=== PATIENT | female | born 1950 | race Caucasian/White ===

== ENCOUNTER 2018-01-26 22:09 | Inpatient (IN) | payer BC, OTHER ==
[2018-01-27] MEDS ORDERED: Tetan/Diph/Pertus SYR(Tdap)* 0.5 ML SYR(BOOSTRIX) use SYR IM ONE (01:19)
[2018-01-27] MEDS ORDERED: NS 0.9% 1000 ML* 1,000 ML IV ONE (01:19)
[2018-01-27 01:34] LABS: ABS Basophils 0 10^3/ul (0-0.2); ABS Eosinophils 0 10^3/ul (0-0.6); ABS Lymphocytes 0.6 10^3/ul (1.0-4.8); ABS Monocytes 0.6 10^3/ul (0-0.8); ABS Neutrophils 8.8 10^3/ul (1.5-7.7); ABS Nucleated RBC 0 10^3/ul; Eosinophil % 0.1 % (0-6); Hematocrit 37 % (35-47); Hemoglobin 12.8 g/dl (12.0-16.0); Lymphocyte % 5.6 % (25-47); Mean Corpuscular HGB Conc 35 g/dl (31-36); Mean Corpuscular Hemoglobin 37 pg (27-31); Mean Corpuscular Volume 104 fL (80-97); Mean Platelet Volume 7 um3 (7.4-10.4); Nucleated Red Blood Cells % 0.1; Platelet Count 214 10^3/ul (150-450); Red Cell Distribution Width 13 % (10.5-15)
[2018-01-27 01:57] LABS: Urine Appearance Cloudy; Urine Blood Negative (Negative); Urine Color Yellow; Urine Ketones 1+ (Negative); Urine Protein 2+(100 mg/dL) (Negative); Urine Specific Gravity 1.017 (1.010-1.030); Urine Urobilinogen Negative (Negative)
--- NOTE | 2018-01-27 06:35 | ED ---
Armond Moscoso Thomas, scribed for Ann Marie Espinosa MD on 01/26/18 at 2329 . Complex/Multi-Sys Presentation - HPI Summary HPI Summary: The patient is a 67 year old female with a history of ovarian cancer on comfort care. She lives by herself. She does have an advance directive and a MOLST. She does not want any care, and she did confirm this to me in the examination room. When I ask her what care she wants, she responds I just want to . The patient admits to taking 30 pills of Xanax 0.5 mg earlier today. Her family could not get a hold of her on the phone today, so they called the police to check on the patient. The police found the patient on the floor of her home after a fall, so they called an ambulance. The patient remembers falling. She complains of abdominal pain. She has a laceration over her left occipital area and multiple superficial infected lacerations over her arms and legs. She denies vomiting. - History Of Current Complaint Chief Complaint: EDMentalHealth Time Seen by Provider: 01/26/18 22:11 Hx Obtained From: Patient Onset/Duration: Still Present Timing: Constant Severity Currently: Moderate Location: Pain At: - abdomen Alleviating Factor(s): None Associated Signs And Symptoms: Positive: Other - Xanax ingestion, abdominal pain ; NEGATIVE: vomiting - Allergies/Home Medications Allergies/Adverse Reactions: Allergies Allergy/AdvReac Type Severity Reaction Status Date / Time MS Bee Venom [Bee Venom] Allergy Anaphylatic Verified 10/21/17 09:20 Shock MS Codeine [Codeine] Allergy Headache Verified 10/21/17 09:20 MS Cephalexin [From Keflex] AdvReac Nausea And Verified 10/21/17 09:20 Vomiting MS Ondansetron [Ondansetron] AdvReac Headache Verified 10/21/17 09:20 MS Prochlorperazine AdvReac See Comment Verified 10/21/17 09:20 [Prochlorperazine] Home Medications: Home Medications ALPRAZolam TAB* [Xanax TAB*] 0.5 - 1 mg PO QID 01/26/18 [History Confirmed 01/26] ALPRAZolam TAB* [Xanax TAB*] 0.5 mg PO BEDTIME PRN 01/26/18 [History Confirmed 01/26/18] Levothyroxine TAB* [Synthroid TAB*] 75 mcg PO DAILY 01/26/18 [History Confirmed 01/26/18] Lisinopril TAB* [Prinivil TAB*] 10 mg PO DAILY 01/26/18 [History Confirmed 01/26] amLODIPine TAB* [Norvasc 5 mg TAB*] 10 mg PO DAILY 01/26/18 [History Confirmed 01/26/18] PMH/Surg Hx/FS Hx/Imm Hx Endocrine/Hematology History: Reports: Hx Thyroid Disease - ON DAILY MEDS Denies: Hx Diabetes Cardiovascular History: Reports: Hx Hypertension - WELL CONTROLLED GI History: Reports: Hx Gastroesophageal Reflux Disease History: Denies: Hx Renal Disease Musculoskeletal History: Reports: Hx Arthritis - KNEES, HANDS Sensory History: Reports: Hx Contacts or Glasses - 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 - Cancer History Cancer Type, Location and Year: Melanoma 2014, ovarian Hx Chemotherapy: Yes - Surgical History Surgery Procedure, Year, and Place: LEFT SHOULDER [facility]. LEFT WRIST GANGLION [facility]. 2007 LEFT KNEE [place]. 2013 FACIAL MELANOMA EXC [place]. LEFT INDEX FINGER NERVE REPAIR 2013 [facility] Hx Anesthesia Reactions: No Infectious Disease History: No Infectious Disease History: Denies: History Other Infectious Disease, Traveled Outside the [place] in Last 30 Days - Family History Known Family History: Negative: Blood Disorder - Social History Alcohol Use: None Alcohol Amount: 2-3 DRINKS/WEEK Substance Use Type: Reports: None Smoking Status (MU): Heavy Every Day Tobacco Smoker Type: Cigarettes Amount Used/How Often: 10-15/DAY Length of Time of Smoking/Using Tobacco: 40 YRS Have You Smoked in the Last Year: Yes Review of Systems Positive: Abdominal Pain. Negative: Vomiting Positive: Other - Laceration Neurological: Other - Fall Positive: Other - Self ingestion Xanax All Other Systems Reviewed And Are Negative: Yes Physical Exam - Summary Physical Exam Summary: VITAL SIGNS: Reviewed. GENERAL: Patient is a well-developed and nourished female who is lying comfortable in the stretcher. Patient is not in any acute respiratory distress. HEAD AND FACE: No signs of trauma. She has a laceration over her left occipital area. No ecchymosis, hematomas or skull depressions. No sinus tenderness. EYES: PERRLA, EOMI x 2, No injected conjunctiva, no nystagmus. EARS: Hearing grossly intact. Ear canals and tympanic membranes are within normal limits. MOUTH: Oropharynx within normal limits. NECK: Supple, trachea is midline, no adenopathy, no JVD, no carotid bruit, no c- spine tenderness, neck with full ROM. CHEST: Symmetric, no tenderness at palpation LUNGS: Clear to auscultation bilaterally. No wheezing or crackles. CVS: Regular rate and rhythm, S1 and S2 present, no murmurs or gallops appreciated. ABDOMEN: Soft, non-tender. No signs of distention. No rebound no guarding, and no masses palpated. Bowel sounds are normal. EXTREMITIES: FROM in all major joints, no edema, no cyanosis or clubbing. NEURO: Alert and oriented x 3. No acute neurological deficits. Speech is normal and follows commands. SKIN: She has a laceration over her left occipital area and multiple superficial infected lacerations over her arms and legs Triage Information Reviewed: Yes Vital Signs On Initial Exam: Initial Vitals BP 140/102 01/26/18 22:21 Vital Signs Reviewed: Yes Procedures - Laceration/Wound Repair 1 Location: Other - left occipital area Description: Linear Anesthesia: 2.0%, [place], Epi Length, Depth and Shape: 1 cm lac with hematoma over left occipital area Closure: [place] #__ - 2 Diagnostics - Vital Signs Vital Signs Temp Pulse Resp BP Pulse Ox 01/26/18 23:00 83 19 94 01/26/18 22:38 97.6 F 92 15 142/78 97 01/26/18 22:30 83 18 142/78 96 01/26/18 22:23 89 99 01/26/18 22:21 140/102 - Laboratory Result Diagrams: 01/27/18 01:23 01/27/18 01:23 Lab Statement: Any lab studies that have been ordered have been reviewed, and results considered in the medical decision making process. - CT CT Brain CT Interpretation: No Acute Changes - Scalp swelling without skull fracture. Very questionable minimal left parietal subarachnoid hemorrhage, more likely representing old calcification, but consider follow up CT in the next 24 hours to ensure stability. Dr. Espinosa has reviewed this report. CT Interpretation Completed By: Radiologist - EKG 06:26 Cardiac Rate: NL EKG Rhythm: Sinus Rhythm - at 96 BPM EKG Interpretation: ST depression in anterior leads as well as the high lateral leads. Complex Multi-Symp Course/Dx Course Of Treatment: The patient is medically cleared for mental health evaluation at 02:37. Assessment/Plan: The patient is a 67 year old female with a history of ovarian cancer on comfort care. She lives by herself. She does have an advance directive and a MOLST. She does not want any care, and she did confirm this to me in the examination room. When I ask her what care she wants, she responds I just want to . The patient admits to taking 30 pills of Xanax 0.5 mg earlier today. Her family could not get a hold of her on the phone today, so they called the police to check on the patient. The police found the patient on the floor of her home after a fall, so they called an ambulance. She has a laceration over her left occipital area. A laceration repair was performed. In the ED course the patient was given IV fluids. CT Brain shows Scalp swelling without skull fracture. Very questionable minimal left parietal subarachnoid hemorrhage, more likely representing old calcification, but consider follow up CT in the next 24 hours to ensure stability. The patient is medically cleared for mental health evaluation at 02:37. The mental health evaluators recommend transfer of the patient. The patient will be transferred. - Diagnoses Provider Diagnoses: Suicidal ideation, Depression Discharge - Discharge Plan Condition: Stable Disposition: OTHER Discharge Disposition Comment: Patient will be transferred. Referrals: Fanta Gill MD [Primary Care Provider] - The documentation as recorded by the Armond camacho Thomas accurately reflects the service I personally performed and the decisions made by me, Ann Marie Espinosa MD.
--- NOTE | 2018-01-27 08:23 | RAD ---
INDICATION: Fall COMPARISON: None. TECHNIQUE: Contiguous axial sections of the brain were obtained from the skull base to the vertex without contrast. FINDINGS: The ventricles, cisterns and sulci are within normal limits. At the jordan-white matter junction of the right parietal lobe there is a hyperattenuating focus with a Hounsfield unit measuring 15 (image 22). Involving the posterior surface of the left postcentral gyrus (image 21) there is an ill-defined focus of hyperattenuation at the cortex. The jordan-white matter differentiation is otherwise adequately maintained. There is no large mass, mass effect or midline shift. Overlying the right frontal lobe is hyperattenuating thickening of the subgaleal tissue measuring 3 mm with a mild degree of overlying subcutaneous infiltration. Overlying the right parieto-occipital bone there is thickening of the subgaleal tissue with hyperattenuation measuring 6 mm with overlying subcutaneous infiltration. There is no underlying calvarial fracture. The visualized portion of the paranasal sinuses appear clear. The mastoid air cells are well aerated bilaterally. IMPRESSION: Superficial signs of trauma overlying the right frontal and right parietal occipital bones. There are 2 foci of hyperattenuation involving the bilateral parietal lobes that, in the setting of recent trauma, could be axonal hemorrhage and/or subarachnoid hemorrhage. There are no prior brain CTs to determine the chronicity of these findings.
--- NOTE | 2018-01-27 09:02 | PN ---
ED Flex Patient Progress Note Date of Service: 01/27/18 Subjective: This is a 67 year-old F who is pending transfer to another psychiatric facility secondary to SI. Pt offers no complaints at this time. She is eating breakfast. Objective: Vitals: Most recent vital signs documented below. General NAD, Alert and oriented x3. Heart: rrr at 70bpm Lungs: CTA or with rales, rhonchi, wheezing Laboratory: Current laboratory results documented below. Assessment: SI Plan: Pending psychiatric to transfer will follow up daily until accepted at facility condition:Stable disposition:transfer Vital Signs Temp Pulse Resp BP Pulse Ox 98 F 86 19 131/58 96 01/27/18 06:51 01/27/18 08:00 01/27/18 08:00 01/27/18 08:00 01/27/18 08:00 Lab Results - Entire Visit 01/27/18 01/27/18 01/27/18 01:45 01:45 01:23 WBC 10.0 RBC 3.50 L Hgb 12.8 Hct 37 MCV 104 H MCH 37 H MCHC 35 RDW 13 Plt Count 214 MPV 7 L Neut % (Auto) 88.0 H Lymph % (Auto) 5.6 L Williams % (Auto) 6.0 Eos % (Auto) 0.1 Baso % (Auto) 0.3 Absolute Neuts (auto) 8.8 H Absolute Lymphs (auto) 0.6 L Absolute Monos (auto) 0.6 Absolute Eos (auto) 0 Absolute Basos (auto) 0 Absolute Nucleated RBC 0 Nucleated RBC % 0.1 Sodium Potassium Chloride Carbon Dioxide Anion Gap BUN Creatinine Est GFR ( Amer) Est GFR (Non-Af Amer) BUN/Creatinine Ratio Glucose Calcium Total Bilirubin AST ALT Alkaline Phosphatase Total Creatine Kinase Total Protein Albumin Globulin Albumin/Globulin Ratio TSH Urine Color Yellow Urine Appearance Cloudy Urine pH 5.0 Ur Specific [place] 1.017 Urine Protein 2+(100 mg/dl) A Urine Ketones 1+ A Urine Blood Negative Urine Nitrate Negative Urine Bilirubin Negative Urine Urobilinogen Negative Ur Leukocyte Esterase Negative Urine WBC (Auto) 1+(6-10/hpf) A Urine RBC (Auto) Trace(0-2/hpf) Ur Squamous Epith Cells Present A Urine Bacteria Absent Hyaline Casts Present A Urine Glucose Negative Urine Ascorbic Acid * A Salicylates Urine Opiates Screen None detected Acetaminophen Ur Barbiturates Screen None detected Ur Phencyclidine Scrn None detected Ur Amphetamines Screen None detected U Benzodiazepines Scrn Presumptive positive A Urine Cocaine Screen None detected U Cannabinoids Screen None detected Serum Alcohol 01/27/18 01:23 WBC RBC Hgb Hct MCV MCH MCHC RDW Plt Count MPV Neut % (Auto) Lymph % (Auto) Williams % (Auto) Eos % (Auto) Baso % (Auto) Absolute Neuts (auto) Absolute Lymphs (auto) Absolute Monos (auto) Absolute Eos (auto) Absolute Basos (auto) Absolute Nucleated RBC Nucleated RBC % Sodium 136 Potassium 3.9 Chloride 103 Carbon Dioxide 24 Anion Gap 9 BUN 17 Creatinine 0.80 Est GFR ( Amer) 92.6 Est GFR (Non-Af Amer) 72.0 BUN/Creatinine Ratio 21.3 H Glucose 108 H Calcium 10.2 Total Bilirubin 0.40 AST 25 ALT 11 Alkaline Phosphatase 74 Total Creatine Kinase 120 Total Protein 8.8 Albumin 4.2 Globulin 4.6 H Albumin/Globulin Ratio 0.9 L TSH 0.56 Urine Color Urine Appearance Urine pH Ur Specific [place] Urine Protein Urine Ketones Urine Blood Urine Nitrate Urine Bilirubin Urine Urobilinogen Ur Leukocyte Esterase Urine WBC (Auto) Urine RBC (Auto) Ur Squamous Epith Cells Urine Bacteria Hyaline Casts Urine Glucose Urine Ascorbic Acid Salicylates < 2.50 Urine Opiates Screen Acetaminophen < 15 Ur Barbiturates Screen Ur Phencyclidine Scrn Ur Amphetamines Screen U Benzodiazepines Scrn Urine Cocaine Screen U Cannabinoids Screen Serum Alcohol < 10
[2018-01-27] MEDS ORDERED: Ibuprofen TAB* 600 MG PO ONE (14:25)
[2018-01-27] MEDS ORDERED: Ibuprofen TAB* 600 MG ONE (14:26)
[2018-01-27] MEDS ORDERED: Acetaminophen TAB* 325 MG PO ONE (16:42)
[2018-01-27] MEDS ORDERED: Al Hydrox/Mg Hydrox/Simet LIQ* 30 ML UDC PO PRN (17:06)
[2018-01-27] MEDS ORDERED: diPHENhydraMINE PO* 25 MG PO PRN (17:08)
[2018-01-27] MEDS ORDERED: LORazepam TAB(*) 1 MG PO PRN (17:17)
[2018-01-27] MEDS ORDERED: Nicotine Inhaler* 10 MG AMP INH PRN (18:28)
[2018-01-27] MEDS ORDERED: Mouth Piece, Nicotine* 1 EACH CARTRIDGE INH ONE (19:00)
[2018-01-28] MEDS: Acetaminophen TAB* 325 MG PO PRN ×2 (04:20→09:50)
[2018-01-28] MEDS: Docusate LIQ* 100 MG/10 ML UDC PO SCH ×4 (05:47→22:11)
[2018-01-28] MEDS: Nicotine Patch Removal NOTE PATCH OFF SCH ×2 (05:47→22:10)
[2018-01-28] MEDS: Senna TAB PO SCH ×4 (05:47→22:10)
[2018-01-28] MEDS: Ibuprofen TAB* 400 MG PO PRN ×2 (08:10)
[2018-01-28] MEDS: Levothyroxine TAB* 75 MCG TAB PO SCH (08:10)
[2018-01-28] MEDS: amLODIPine TAB* 5 MG PO SCH (08:10)
[2018-01-28] MEDS: Lisinopril TAB* 10 MG PO SCH (08:10)
[2018-01-28] MEDS ORDERED: OMEGA-3 FATTY ACIDS (NF) 1,000 MG CAP PO SCH (09:00)
[2018-01-28] MEDS: Nicotine PATCH 21 MG/24 HR* PATCH TRANSDERM SCH (09:02)
[2018-01-28] MEDS: Multivitamins/Minerals TAB PO SCH (09:02)
--- NOTE | 2018-01-28 11:08 | ADMNOTE ---
History - Objective HPI: Psychiatric Attending History and Physical NAME: Judie Brar : 1950 AGE: 69 PROVIDER: Jose Casanova D.O. DATE OF ADMISSION: 01/27/2018 JUSTIFICATION FOR ADMISSION: Patient in need of imminent involuntary admission to a psychiaric inpatient unit for 24 hour supervision as she is a danger to her self, having made a suicide attempt by overdose CHIEF COMPLAINT: "I want to crawl into a ball and " HISTORY OF THE PRESENT ILLNESS: 67 yo single woman retired with history of stage 4 ovarian cancer with bone metastasis diagnosed 2 years ago. Patient lives alone. patient received weekly chemotherapy for past two years and reports fairly good quality of life with only minimal pain which has been treated with only ibuprofen and tylenol. Patient reports that she stopped chemotherapy by choice and in collaboration with her oncologist in November 2017 due to diminished effectiveness as evidence by rising tumor markers, and toxic side effects of chemotherapy including decreased stamina, lethargy, excercise intolerance, general feelings of malaise. At that time patient began receiving services from hospice care with in home visits by nursing and social work. Patient denies history of mental illness or psychiatric hospitalization. She further reports onset of depression for past several months which has become progressively more severe in past two weeks. patient endorses anergia, lethargy, poor appetite, early insomnia, agitation, loss of interest, dysphoric mood for past few months. SHe has been isolating, not caring for her ADL's, and not cleaning her aprtment. She developed suicidal ideation about two weeks ago and has been ruminating daily about taking her own life. one week prior to admission she began to experience bone pain which was not relieved by tylenol or mortin. She did not share her depressive symptoms nor her pain with her sister or the hospice team. Patient has cats which she is very attatched to. on day prior to admission patient drowned her cats so they would not be a burden to anyone after she her and because she wanted to "take them with me to my grave". Patient subsequently took an entire bottle of xanax 0.5 mg tablets (30 pills) with the intention of ending her life. To hasten her she then made multiple superficial lacerations to both wrists and forearms. Patient loss consciousness and hit her head sustaining occipital scalp laceration. When her sister was unable to reach her, police were called. Police found patient unconsious on floor. patient was brought to hospital and evaluated in ED Initial CT scan showed no skull fracture with possible minimal left parietal subarachnoid hemorrhage versus old calcification. Suggestion was made to repeat CT scan in 24 hours. patient was cleared from medical perspective for transfer to psychiatry for treatment of depression and 24 hour supervision due to danger to self. PAST PSYCHIATRIC HISTORY: denies any past history of psychiatric treatment SUBSTANCE ABUSE HISTORY: 40 year history of smoking 1 pack per day. says she quit one year ago but has been smoking intermittently in past few months. no history of drug use or abuse of OTC medications PAST MEDICAL HISTORY: Melanoma 2013 excised, Hypertension Graves disease/hypothyroidism Ovarian cancer stage 4 s/p chemotherapy with Dr. Singh which ended in November 2017 CURRENT MEDICATIONS: Xanax 0.5 to 1 mg QID and 0.5 mg qhs prn insomnia Synthroid 75 mcg PO QAM Lisinopril 10 mg PO QAM Amlodopine 10 mg PO QAM ALLERGIES: Bee venom, Codeine, Keflex, Ondasetron, Prochlorperazine FAMILY PSYCHIATRIC HISTORY: unknown patient is adopted FAMILY/PSYCHOSOCIAL HISTORY: Grew up in [facility]. father worked many jobs. mother was stay at home. adopted at a few months of age. never . has step sister who is the biological child of her adoptive parents. and while at [employer]. lived alone and never remarried. 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 denies history of abuse or trauma. few friends. Described by sister as a loner who enjoyed her own company. Sister has never known her to be depressed. quiet, unassuming, never one to share her feelings, kept mostly to herself. never had need to have friends. REVIEW OF SYSTEMS: all noncontributory per hospitalist H and P performed in ED on 01/27/2018 PHYSICAL EXAMINATION: UNREMARKABLE (NORMAL PHYSICAL EXAMINATION) per hospitalist 's H and P performed in ED on 01/27/2018 MENTAL STATUS EXAMINATION: Well developed and nourished 67 yo woman sitting up in hospital bed. patient wearing her own bed clothing. patient is in no apparent distress and appears comfortable. no evidence of SOB. She is in no distress and does not appear to be in severe pain at the time of the interview as she is conversing fluently without any discontinuity or distraction in her thought process as might occur with severe pain. Speech articulate normal rate and volume. patient is well related. she has good eye contact. multiple dry scabbed and healing lacerations are visible on bilateral forearms. and wrists. Mood is dysphoric. patient describes feeling very sad. affect shows diminished range(flattening) with decreased amplitude. patient is not agitated but has mild psychomotoric slowing. Thought process is organized and goal directedl. she is coherent. Thought content remarkable for depressive themes including hopelessness, helplessness, suicidal ideation, regret and remorse that her suicide attempt wasnt sucessful, mourning regret over of her kittens. no evidence of delusions, paranoia. denies AH,VH,HI. denies urge or plan to harm herself at present time. and contracts to come to staff if she has urge to act on impulse to harm self. alert and fully oriented in all spheres. cognitive exam deferred. insight intact judgment impaired by severity of her depression. patient does agree she needs help and does wish to receive treatment for her depression. she reports poor appetite and insomnia. LABORATORY DATA: Laboratory Results - last 24 hr 01/27/18 01/27/18 01:23 01:23 Sodium 136 Potassium 3.9 Chloride 103 Carbon Dioxide 24 Anion Gap 9 BUN 17 Creatinine 0.80 Est GFR ( Amer) 92.6 Est GFR (Non-Af Amer) 72.0 BUN/Creatinine Ratio 21.3 H Glucose 108 H Hemoglobin A1c 5.3 Calcium 10.2 Total Bilirubin 0.40 AST 25 ALT 11 Alkaline Phosphatase 74 Total Creatine Kinase 120 Total Protein 8.8 Albumin 4.2 Globulin 4.6 H Albumin/Globulin Ratio 0.9 L Triglycerides 147 Cholesterol 198 LDL Cholesterol 123 HDL Cholesterol 45.3 TSH 0.56 Salicylates < 2.50 Acetaminophen < 15 Serum Alcohol < 10 IMPRESSION: 67 yo woman with stage 4 ovarian cancer metastatic to bone, hypertension, graves disease, s/p 2 years of weekly chemo which was discontinued 2 months ago. patient lives alone and her only support is her sister who lives 3 hours away. patient has two month history of first episode of depression which has become progressively more severe. she is not performing her ADL's, no longer preparing meals, and her apartment was in a state of disarray according to state police who found her unconsious after suicide attempt by OD and slitting her wrists. Patient's bone pain has become severe in past week and is no longer responding to antiinflammatory medications. MSE consistent with severe depression and active SI she is danger to self andrequires inpatient level of care and 24 hour supervision DIAGNOSES: Unspecified Depressive Disorder suicide attempt by overdose PLAN: admit to [facility] on Q 15 min observatin status fornow patient contracts for safety at this time milieu, individual and group therapy will be helpful despite cancer diagnosis there is no reason not to expect that she can respond to threatment and that she can achieve remission of depressive symptoms. I have coordinatedtreatment efforst with play leader by Dr. Bruno. I spoke with and communicated by impression and treatment recommendations which will be to start patient on Wellbutrin in AM and Remeron in evening. goal would be remission of SI and decrease in depressive symptoms. Once patient is safe and no longer danger to self, Dr. Bruno [facility] [place] where patient can have higher level of care. Patient likely should not return to independent living. patient being started on morphine [address] Bruno start Wellbutrin SR 100 mg qam and Remeron 15 mg qhs for depression/insomnia Plan - Treatment Plan Medications: Current Medications Acetaminophen (Tylenol Tab*) 650 mg PO Q4H PRN PRN Reason: for pain; or Temp >101 F Last Admin: 01/28/18 09:50 Dose: 650 mg Al Hydrox/Mg Hydrox/Simethicone (Maalox Plus*) 30 ml PO Q4H PRN PRN Reason: INDIGESTION Amlodipine Besylate (Norvasc Tab*) 10 mg PO DAILY [facility] Last Admin: 01/28/18 08:10 Dose: 10 mg Diphenhydramine HCl (Benadryl Po*) 25 mg PO BEDTIME PRN PRN Reason: INSOMNIA Docusate Sodium (Colace Liq*) 250 mg PO BID [facility] Last Admin: 01/28/18 09:02 Dose: Not Given Fish Oil (Fish Oil (Nf)) 1,000 mg PO DAILY [facility] PRN Reason: Protocol Last Admin: 01/28/18 09:03 Dose: Not Given Ibuprofen (Motrin Tab*) 400 mg PO Q6H PRN PRN Reason: PAIN Last Admin: 01/28/18 08:10 Dose: 400 mg Levothyroxine Sodium (Synthroid Tab*) 75 mcg PO 0600 [facility] Last Admin: 01/28/18 08:10 Dose: 75 mcg Lisinopril (Prinivil Tab*) 10 mg PO DAILY [facility] Last Admin: 01/28/18 08:10 Dose: 10 mg Lorazepam (Ativan Tab(*)) 1 mg PO Q6H PRN PRN Reason: ANXIETY Multivitamins/Minerals (Theragran/Minerals Tab*) 1 tab PO DAILY [facility] Last Admin: 01/28/18 09:02 Dose: Not Given Nicotine (Nicotine Inhaler*) 10 mg INH Q2H PRN PRN Reason: CRAVING Nicotine (Nicotine Patch 21 Mg/24 Hr*) 1 patch TRANSDERM DAILY [facility] Last Admin: 01/28/18 09:02 Dose: Not Given Pharmacy Profile Note (Nicotine Patch Removal Note*) 1 note PATCH OFF 2100 [facility] Last Admin: 01/28/18 05:47 Dose: Not Given Senna (Senokot Tab*) 2 tab PO BID [facility] Last Admin: 01/28/18 09:03 Dose: Not Given
[2018-01-28] MEDS ORDERED: Morphine ORAL CONCENTRATE* 5 MG/0.25 ML ORAL.SYRIN SL PRN ×2 (11:24)
--- NOTE | 2018-01-28 12:02 | CONSULT ---
Palliative / Hospice Consult Ordering Provider: Buster Sargent - Subjective Code Status: DNR Advance Directives Location: with pt [facility] Part A Completed: Yes - DNR [facility] Part E Completed:: Yes - DNI, no DREW - History or Present Illness History or Present Illness: This 68 year old woman is hospitalized after a suicide attempt. The patient is a retired [employer] employee who was diagnosed with ovarian cancer in November 2015 , and was treated with standard chemotherapy for 2 years. She had ascites requiring periodic paracentesis. She had bone metastases discovered in March 2016 , but these were largely asymptomatic until recently. In November she elected to discontinue further life-prolonging efforts as her options for treatment free of side effects was quite limited, and in any case her tumor marker (Ca 125) was increasing despite chemotherapy. She decided to enrol in hospice services and we assumed coverage on 12/18/17. At that time she was still mostly independent and was still driving and caring for herself at home where she lived alone with her two beloved cats. The patient is somewhat socially isolated and has one living relative, a sister , with whom she is not close. Apparently she has been becoming progressively depressed about her circumstances, but has not shared the extent of her hopelessness and desperation with others, including her hospice nurse and perinatal social worker. She has described her intention to euthanize her cats prior to her because she does not want them to have to live without her. On January 26, she tranquilized her cats with alprazolam and then drowned them. Then she took 30 tablets of 0.5 mg alprazolam in an attempt to end her life. Her sister called and was unable to reach her, so called the police who went to her residence and found her unconscious on the floor and brought her to the ER at [facility]. The patient now describes that her bone pain, which had been trivial before , had become severe enough to require ibuprofen for relief, and although the pain was never more than a 5 out of 10, the knowledge that it would probably worsen was intolerable to her, so she decided to attempt suicide. The patient has a history of hypothyroidism and HTN. She has no prior history of depression or any other mental health issues. Lab Values: Laboratory Last Values WBC 10.0 10^3/ul (3.5-10.8) 01/27/18 01:23 RBC 3.50 10^6/ul (4.0-5.4) L 01/27/18 01:23 Hgb 12.8 g/dl (12.0-16.0) 01/27/18 01:23 Hct 37 % (35-47) 01/27/18 01:23 MCV 104 fL (80-97) H 01/27/18 01:23 MCH 37 pg (27-31) H 01/27/18 01:23 MCHC 35 g/dl (31-36) 01/27/18 01:23 RDW 13 % (10.5-15) 01/27/18 01:23 Plt Count 214 10^3/ul (150-450) 01/27/18 01:23 MPV 7 um3 (7.4-10.4) L 01/27/18 01:23 Neut % (Auto) 88.0 % (38-83) H 01/27/18 01:23 Lymph % (Auto) 5.6 % (25-47) L 01/27/18 01:23 [place] % (Auto) 6.0 % (0-7) 01/27/18 01:23 Eos % (Auto) 0.1 % (0-6) 01/27/18 01:23 Baso % (Auto) 0.3 % (0-2) 01/27/18 01:23 Absolute Neuts (auto) 8.8 10^3/ul (1.5-7.7) H 01/27/18 01:23 Absolute Lymphs (auto) 0.6 10^3/ul (1.0-4.8) L 01/27/18 01:23 Absolute Monos (auto) 0.6 10^3/ul (0-0.8) 01/27/18 01:23 Absolute Eos (auto) 0 10^3/ul (0-0.6) 01/27/18 01:23 Absolute Basos (auto) 0 10^3/ul (0-0.2) 01/27/18 01:23 Absolute Nucleated RBC 0 10^3/ul 01/27/18 01:23 Nucleated RBC % 0.1 01/27/18 01:23 Sodium 136 mmol/L (133-145) 01/27/18 01:23 Potassium 3.9 mmol/L (3.5-5.0) 01/27/18 01:23 Chloride 103 mmol/L (101-111) 01/27/18 01:23 Carbon Dioxide 24 mmol/L (22-32) 01/27/18 01:23 Anion Gap 9 mmol/L (2-11) 01/27/18 01:23 BUN 17 mg/dL (6-24) 01/27/18 01:23 Creatinine 0.80 mg/dL (0.51-0.95) 01/27/18 01:23 Est GFR ( Amer) 92.6 (>60) 01/27/18 01:23 Est GFR (Non-Af Amer) 72.0 (>60) 01/27/18 01:23 BUN/Creatinine Ratio 21.3 (8-20) H 01/27/18 01:23 Glucose 108 mg/dL (70-100) H 01/27/18 01:23 Hemoglobin A1c 5.3 % (4.0-5.6) 01/27/18 01:23 Calcium 10.2 mg/dL (8.6-10.3) 01/27/18 01:23 Total Bilirubin 0.40 mg/dL (0.2-1.0) 01/27/18 01:23 AST 25 U/L (13-39) 01/27/18 01:23 ALT 11 U/L (7-52) 01/27/18 01:23 Alkaline Phosphatase 74 U/L (34-104) 01/27/18 01:23 Total Creatine Kinase 120 U/L (10-223) 01/27/18 01:23 Total Protein 8.8 g/dL (6.4-8.9) 01/27/18 01:23 Albumin 4.2 g/dL (3.2-5.2) 01/27/18 01:23 Globulin 4.6 g/dL (2-4) H 01/27/18 01:23 Albumin/Globulin Ratio 0.9 (1-3) L 01/27/18 01:23 Triglycerides 147 mg/dL 01/27/18 01:23 Cholesterol 198 mg/dL 01/27/18 01:23 LDL Cholesterol 123 mg/dL 01/27/18 01:23 HDL Cholesterol 45.3 mg/dL 01/27/18 01:23 TSH 0.56 mcIU/mL (0.34-5.60) 01/27/18 01:23 Urine Color Yellow 01/27/18 01:45 Urine Appearance Cloudy 01/27/18 01:45 Urine pH 5.0 (5-9) 01/27/18 01:45 Ur Specific [place] 1.017 (1.010-1.030) 01/27/18 01:45 Urine Protein 2+(100 mg/dl) (Negative) A 01/27/18 01:45 Urine Ketones 1+ (Negative) A 01/27/18 01:45 Urine Blood Negative (Negative) 01/27/18 01:45 Urine Nitrate Negative (Negative) 01/27/18 01:45 Urine Bilirubin Negative (Negative) 01/27/18 01:45 Urine Urobilinogen Negative (Negative) 01/27/18 01:45 Ur Leukocyte Esterase Negative (Negative) 01/27/18 01:45 Urine WBC (Auto) 1+(6-10/hpf) (Absent) A 01/27/18 01:45 Urine RBC (Auto) Trace(0-2/hpf) (Absent) 01/27/18 01:45 Ur Squamous Epith Cells Present (Absent) A 01/27/18 01:45 Urine Bacteria Absent (Absent) 01/27/18 01:45 Hyaline Casts Present (Absent) A 01/27/18 01:45 Urine Glucose Negative (Negative) 01/27/18 01:45 Urine Ascorbic Acid * (Negative) A 01/27/18 01:45 Salicylates < 2.50 mg/dL (<30) 01/27/18 01:23 Urine Opiates Screen None detected (None Detect) 01/27/18 01:45 Acetaminophen < 15 mcg/mL 01/27/18 01:23 Ur Barbiturates Screen None detected (None Detect) 01/27/18 01:45 Ur Phencyclidine Scrn None detected (None Detect) 01/27/18 01:45 Ur Amphetamines Screen None detected (None Detect) 01/27/18 01:45 U Benzodiazepines Scrn Presumptive positive (None Detect) A 01/27/18 01:45 Urine Cocaine Screen None detected (None Detect) 01/27/18 01:45 U Cannabinoids Screen None detected (None Detect) 01/27/18 01:45 Serum Alcohol < 10 mg/dL (<10) 01/27/18 01:23 - Objective Active Medications: Acetaminophen (Tylenol Tab*) 650 mg PO Q4H PRN PRN Reason: for pain; or Temp >101 F Last Admin: 01/28/18 09:50 Dose: 650 mg Al Hydrox/Mg Hydrox/Simethicone (Maalox Plus*) 30 ml PO Q4H PRN PRN Reason: INDIGESTION Amlodipine Besylate (Norvasc Tab*) 10 mg PO DAILY [facility] Last Admin: 01/28/18 08:10 Dose: 10 mg Diphenhydramine HCl (Benadryl Po*) 25 mg PO BEDTIME PRN PRN Reason: INSOMNIA Docusate Sodium (Colace Liq*) 250 mg PO BID [facility] Last Admin: 01/28/18 09:02 Dose: Not Given Fish Oil (Fish Oil (Nf)) 1,000 mg PO DAILY [facility] PRN Reason: Protocol Last Admin: 01/28/18 09:03 Dose: Not Given Ibuprofen (Motrin Tab*) 400 mg PO Q6H PRN PRN Reason: PAIN Last Admin: 01/28/18 08:10 Dose: 400 mg Levothyroxine Sodium (Synthroid Tab*) 75 mcg PO 0600 [facility] Last Admin: 01/28/18 08:10 Dose: 75 mcg Lisinopril (Prinivil Tab*) 10 mg PO DAILY [facility] Last Admin: 01/28/18 08:10 Dose: 10 mg Lorazepam (Ativan Tab(*)) 1 mg PO Q6H PRN PRN Reason: ANXIETY Morphine Sulfate (Morphine Oral Concentrate*) 5 mg SL Q6HR [facility] Morphine Sulfate (Morphine Oral Concentrate*) 5 mg SL Q2H PRN PRN Reason: PAIN Morphine Sulfate (Morphine Oral Concentrate*) 10 mg SL Q2H PRN PRN Reason: PAIN Multivitamins/Minerals (Theragran/Minerals Tab*) 1 tab PO DAILY [facility] Last Admin: 01/28/18 09:02 Dose: Not Given Nicotine (Nicotine Inhaler*) 10 mg INH Q2H PRN PRN Reason: CRAVING Nicotine (Nicotine Patch 21 Mg/24 Hr*) 1 patch TRANSDERM DAILY [facility] Last Admin: 01/28/18 09:02 Dose: Not Given Pharmacy Profile Note (Nicotine Patch Removal Note*) 1 note PATCH OFF 2100 [facility] Last Admin: 01/28/18 05:47 Dose: Not Given Senna (Senokot Tab*) 2 tab PO BID [facility] Last Admin: 01/28/18 09:03 Dose: Not Given Vital Signs: Vital Signs: Temp Pulse Resp BP Pulse Ox 98.8 F 78 16 142/78 98 01/28/18 08:01 01/28/18 08:01 01/28/18 11:17 01/28/18 08:01 01/28/18 08:01 Patient Weight: Weight 126 lb Intake and Output: Intake & Output 01/26/18 01/27/18 01/28/18 01/29/18 06:59 06:59 06:59 06:59 Weight 126 lb ADLs: Meal Record Start: 01/27/18 18: 41 Freq: Status: Active Protocol: Created 01/27/18 18:41 System (Rec: 01/27/18 18:41 System [id number]) General Impression: Depressed, crying woman with superficial lacerations on extremities and right periorbital swelling erythema. Speech is clear. Head: Symmetrical Eyes: No Scleral Icterus Neck: Trachea Midline Extremities: No Edema Neurological: Alert and Oriented x 3 - Assessment Assessment: This patient with stage 4 ovarian cancer with ascites and bone metastases was assessed in November by her oncologist as having only weeks to months to live at the time of hospice enrolment. She has severe situational depression and has tried to end her life, after concealing her growing depression. I have spoken with Dr. Casanova and feel encouraged byhis assessment that her depression might be alleviated and she would be able to be discharged from the U. Her disposition will not be easy to navigate if she remains a suicide risk. I am hoping she will be able to return to independent existence in a setting that is agreeable to her. We will not be able to bring her to the [facility] residence if she has any tendency toward violence to herself or others. Her sister may be able to move in with her in her home and provide adequate supervision. We will continue to follow this patient's progress and work with the U team to maximize her options for safe and comfortable discharge. Meanwhile, she reports 4/10 pain now. I have ordered SL morphine, 5 mg Roxanol Q 6 h, to treat her bone pain, and she can have additional doses as needed for breakthrough pain. This regimen will be monitored by her hospice nurse and perinatal social worker, who will see her daily as long as she is an inpatient on Hospice services (GIP status) .Please contact me with any questions or concerns: cell # [phone]. - Plan Consult Plan (MU): Hospice - Already on hospice services, continue as GIP status in hospital - Time On Unit Date of Evaluation: 01/28/18 Hospice Consult Time in: 10:30 Hospice Consult Time Out: 11:30 Hospice Consult Time Total: 60 > 50% of Time Spend In Counseling or Coordinating Care: Yes
[2018-01-28] MEDS: Morphine ORAL CONCENTRATE* 5 MG/0.25 ML ORAL.SYRIN SL SCH ×2 (13:12→17:57)
[2018-01-28] MEDS ORDERED: Mirtazapine TAB* 15 MG PO PRN (14:59)
[2018-01-28] MEDS: Morphine ORAL CONCENTRATE* 5 MG/0.25 ML ORAL.SYRIN SL PRN ×2 (15:14→20:17)
--- NOTE | 2018-01-28 15:29 | RAD ---
HISTORY: Follow-up subarachnoid hemorrhage COMPARISONS: January 27, 2018 TECHNIQUE: Multiple contiguous axial CT scans were obtained of the head without intravenous contrast. FINDINGS: HEMORRHAGE/INFARCT: There is no hemorrhage or acute infarct. MASSES/SHIFT: There is no mass or shift. EXTRA-AXIAL SPACES: There are no extra-axial fluid collections. SULCI AND VENTRICLES: The sulci and ventricles are normal in size and position for the patient's stated age. CEREBRUM: There is stable focal calcification of the right posterior frontal lobe. There is stable hyperattenuation within the cortex of the left posterior frontal lobe. BRAINSTEM: There are no focal parenchymal abnormalities. CEREBELLUM: There are no focal parenchymal abnormalities. VESSELS: The vessels are grossly normal. PARANASAL SINUSES: The paranasal sinuses are clear. ORBITS: The orbits are unremarkable. BONES AND SOFT TISSUE: No bone or soft tissue abnormalities are noted. OTHER: None IMPRESSION: 1. THE HIGH ATTENUATION LESIONS NOTED ON THE PREVIOUS EXAMINATION ARE AGAIN IDENTIFIED. ON THE RIGHT, THIS IS MOST CONSISTENT WITH FOCAL DYSTROPHIC CALCIFICATION. ON THE LEFT, THIS IS LESS SPECIFIC BUT APPEARS TO LOCALIZE TO THE CORTEX OF THE POSTERIOR LEFT FRONTAL LOBE. GIVEN THE HISTORY OF MALIGNANCY, CONSIDER CORRELATION WITH FURTHER EVALUATION WITH CONTRAST-ENHANCED MRI OF THE BRAIN TO EXCLUDE METASTATIC DISEASE. 2. THERE ARE NO FINDINGS TO SUGGEST SUBARACHNOID HEMORRHAGE OR OTHER ACUTE INTRACRANIAL PATHOLOGY.
[2018-01-28] MEDS ORDERED: clonazePAM TAB(*) 0.5 MG PO PRN (17:22)
[2018-01-28] MEDS ORDERED: LORazepam TAB(*) 1 MG PO PRN (17:23)
[2018-01-29] MEDS: Morphine ORAL CONCENTRATE* 5 MG/0.25 ML ORAL.SYRIN SL SCH ×3 (02:50→12:01)
[2018-01-29] MEDS: Morphine ORAL CONCENTRATE* 5 MG/0.25 ML ORAL.SYRIN SL PRN ×2 (08:50→12:49)
--- NOTE | 2018-01-29 11:25 | PN ---
Subjective - Subjective Subjective: Psychiatric Attending progress note: patient experienced break through rib pain between Q6h morphine doses. patient attended couple of groups last night and today. appetite fair but is eating 50 per cent of meals drinking adequate fluids. brightens up with visitors. felt sluggish this AM which she attributes to Remeron which was started last night. slept through the night which she was very pleased with. Met with patient X 45 min today. Amrit was readily engaged in 45 min conversation. began talking about how she was different from others on the unit as she was facing in near future. subsequently talked of getting her affairs in order but then choose to leave the topic of mortality and spent the next half hour sharing with me her likes, her dislikes including her love of [place] bagels, and a particular [place] which she only drinks rarely when her oncologist tells her its ok. We agreed on an increased dosing schedule for her morphine which will be Q4H while awake instead of Q6H. patient's mood and affect were bright during the discussion. she did not share feeing suicidal. she clearly does well when she has the opportunity to engage with others. Although she chooses to be alone because she enjoys her own company, she also shared that she enjoys company and socialization when she is with people who share a common interest with her. thought process was organized, coherent. no evidence of language impairment. patient reports her concentration is not at baseline. patient denied feeling sedated by morphine or unsteady on her feet. Impression: unspecified depressive disorder terminal ovarian cancer stage 4 with bone metastasis hypertension hypothyroidism Plan: lower remeron to 7.5 mg QHS Change scheduled morphine to 5 mg q 8am, qnoon, q4pm, q8 pm and q MN patient to be woken at midnight for morphine dose morphine 5 to 10 mg q2h prn breakthrough pain wellbutrin SR 100 mg QAM all other meds unchanged. Plan - Plan Treatment Plan: Name: AMRIT LEYVA Birthdate: 1950 [id number] Medications: Current Medications Acetaminophen (Tylenol Tab*) 650 mg PO Q4H PRN PRN Reason: for pain; or Temp >101 F Last Admin: 01/28/18 09:50 Dose: 650 mg Al Hydrox/Mg Hydrox/Simethicone (Maalox Plus*) 30 ml PO Q4H PRN PRN Reason: INDIGESTION Amlodipine Besylate (Norvasc Tab*) 10 mg PO DAILY [facility] Last Admin: 01/28/18 08:10 Dose: 10 mg Bupropion HCl (Wellbutrin Sr Tab*) 100 mg PO DAILY@0900 [facility] Diphenhydramine HCl (Benadryl Po*) 25 mg PO BEDTIME PRN PRN Reason: INSOMNIA Docusate Sodium (Colace Liq*) 250 mg PO BID [facility] Last Admin: 01/28/18 22:11 Dose: Not Given Ibuprofen (Motrin Tab*) 400 mg PO Q6H PRN PRN Reason: PAIN Last Admin: 01/28/18 08:10 Dose: 400 mg Levothyroxine Sodium (Synthroid Tab*) 75 mcg PO 0600 [facility] Last Admin: 01/28/18 08:10 Dose: 75 mcg Lisinopril (Prinivil Tab*) 10 mg PO DAILY [facility] Last Admin: 01/28/18 08:10 Dose: 10 mg Lorazepam (Ativan Tab(*)) 1 mg PO Q6H PRN PRN Reason: anxiety/insomia Mirtazapine (Remeron Tab*) 15 mg PO BEDTIME PRN PRN Reason: SLEEP Last Admin: 01/28/18 22:13 Dose: 15 mg Morphine Sulfate (Morphine Oral Concentrate*) 5 mg SL Q6HR [facility] Last Admin: 01/29/18 06:22 Dose: 5 mg Morphine Sulfate (Morphine Oral Concentrate*) 5 mg SL Q2H PRN PRN Reason: PAIN Last Admin: 01/29/18 08:50 Dose: 5 mg Morphine Sulfate (Morphine Oral Concentrate*) 10 mg SL Q2H PRN PRN Reason: PAIN Multivitamins/Minerals (Theragran/Minerals Tab*) 1 tab PO DAILY [facility] Last Admin: 01/28/18 09:02 Dose: Not Given Nicotine (Nicotine Inhaler*) 10 mg INH Q2H PRN PRN Reason: CRAVING Nicotine (Nicotine Patch 21 Mg/24 Hr*) 1 patch TRANSDERM DAILY [facility] Last Admin: 01/28/18 09:02 Dose: Not Given Pharmacy Profile Note (Nicotine Patch Removal Note*) 1 note PATCH OFF 2100 [facility] Last Admin: 01/28/18 22:10 Dose: Not Given Senna (Senokot Tab*) 2 tab PO BID [facility] Last Admin: 01/28/18 22:10 Dose: 2 tab
[2018-01-29] MEDS: Nicotine PATCH 21 MG/24 HR* PATCH TRANSDERM SCH (12:04)
[2018-01-29] MEDS: Levothyroxine TAB* 75 MCG TAB PO SCH (12:05)
[2018-01-29] MEDS: Senna TAB PO SCH ×2 (12:05→20:14)
[2018-01-29] MEDS: amLODIPine TAB* 5 MG PO SCH (12:05)
[2018-01-29] MEDS: Lisinopril TAB* 10 MG PO SCH (12:05)
[2018-01-29] MEDS: buPROPion SR TAB.SR* 100 MG PO SCH (12:05)
[2018-01-29] MEDS: Multivitamins/Minerals TAB PO SCH (12:05)
[2018-01-29] MEDS: Docusate LIQ* 100 MG/10 ML UDC PO SCH ×2 (12:08→20:16)
[2018-01-29] MEDS ORDERED: Morphine ORAL CONCENTRATE* 5 MG/0.25 ML ORAL.SYRIN PO ONE (16:45)
[2018-01-29] MEDS: Morphine ORAL CONCENTRATE* 5 MG/0.25 ML ORAL.SYRIN PO SCH (20:14)
[2018-01-29] MEDS: Nicotine Patch Removal NOTE PATCH OFF SCH (20:16)
[2018-01-29] MEDS ORDERED: Mirtazapine TAB* 15 MG PO SCH (21:00)
[2018-01-29] MEDS: Mirtazapine TAB* 15 MG PO SCH (22:01)
[2018-01-30] MEDS: Morphine ORAL CONCENTRATE* 5 MG/0.25 ML ORAL.SYRIN PO SCH ×5 (00:05→20:04)
[2018-01-30] MEDS: amLODIPine TAB* 5 MG PO SCH (09:21)
[2018-01-30] MEDS: buPROPion SR TAB.SR* 100 MG PO SCH (09:21)
[2018-01-30] MEDS: Levothyroxine TAB* 75 MCG TAB PO SCH (09:21)
[2018-01-30] MEDS: Docusate LIQ* 100 MG/10 ML UDC PO SCH (09:21)
[2018-01-30] MEDS: Senna TAB PO SCH ×2 (09:22→20:21)
[2018-01-30] MEDS: Lisinopril TAB* 10 MG PO SCH (09:22)
[2018-01-30] MEDS: Nicotine PATCH 21 MG/24 HR* PATCH TRANSDERM SCH (09:22)
[2018-01-30] MEDS: Multivitamins/Minerals TAB PO SCH (09:22)
[2018-01-30] MEDS: Morphine ORAL CONCENTRATE* 5 MG/0.25 ML ORAL.SYRIN SL PRN (09:59)
--- NOTE | 2018-01-30 11:18 | PN ---
Subjective - Subjective Subjective: psychiatric Attending progress note: mental status showing improvement voicing that she only required one prn dose of morphine. likes the 5 mg five times daily attended groups and participated. Amrit does take naps when she feels tired. attributes this to her cancer. denies feeling tired or sedated after morphine dose. "it just makes me feel like I can get up and walk and function because my pain is very minimal after I take the morphine." Also reports waking up this morning and not feeling medicated or sluggish. she feels lowering remeron to 7.5 mg was perfect. she is sleeping through the night and waking up feeling more rested. MSE: very talkative mood brighter affect full range TP orgaized TC no psychotic symptoms. no suicidal ideation, intent or plan today did talk about going to [facility] up near sister in [place] which would allow her sister to visit her almost daily insight/judgment intact Impression: pain under better control mood improving suicidal ideation remitting with treatment and milieu engagement Plan: continue medications unchanged discharge to [facility] early next week Plan - Plan Treatment Plan: Name: AMRIT LEYVA Birthdate: 1950 [id number] Medications: Current Medications Acetaminophen (Tylenol Tab*) 650 mg PO Q4H PRN PRN Reason: for pain; or Temp >101 F Last Admin: 01/28/18 09:50 Dose: 650 mg Al Hydrox/Mg Hydrox/Simethicone (Maalox Plus*) 30 ml PO Q4H PRN PRN Reason: INDIGESTION Amlodipine Besylate (Norvasc Tab*) 10 mg PO DAILY [facility] Last Admin: 01/30/18 09:21 Dose: 10 mg Bupropion HCl (Wellbutrin Sr Tab*) 100 mg PO DAILY@0900 [facility] Last Admin: 01/30/18 09:21 Dose: 100 mg Diphenhydramine HCl (Benadryl Po*) 25 mg PO BEDTIME PRN PRN Reason: INSOMNIA Docusate Sodium (Colace Cap*) 100 mg PO BID [facility] Ibuprofen (Motrin Tab*) 400 mg PO Q6H PRN PRN Reason: PAIN Last Admin: 01/28/18 08:10 Dose: 400 mg Levothyroxine Sodium (Synthroid Tab*) 75 mcg PO 0600 [facility] Last Admin: 01/30/18 09:21 Dose: 75 mcg Lisinopril (Prinivil Tab*) 10 mg PO DAILY [facility] Last Admin: 01/30/18 09:22 Dose: 10 mg Lorazepam (Ativan Tab(*)) 1 mg PO Q6H PRN PRN Reason: anxiety/insomia Mirtazapine (Remeron Tab*) 7.5 mg PO BEDTIME [facility] Last Admin: 01/29/18 22:01 Dose: 7.5 mg Morphine Sulfate (Morphine Oral Concentrate*) 5 mg SL Q2H PRN PRN Reason: PAIN Last Admin: 01/30/18 09:59 Dose: 5 mg Morphine Sulfate (Morphine Oral Concentrate*) 10 mg SL Q2H PRN PRN Reason: PAIN Morphine Sulfate (Morphine Oral Concentrate*) 5 mg PO 0800,1200,1600,2000 [facility] Last Admin: 01/30/18 07:44 Dose: 5 mg Morphine Sulfate (Morphine Oral Concentrate*) 5 mg PO 0000 [facility] Last Admin: 01/30/18 00:05 Dose: 5 mg Multivitamins/Minerals (Theragran/Minerals Tab*) 1 tab PO DAILY [facility] Last Admin: 01/30/18 09:22 Dose: 1 tab Nicotine (Nicotine Inhaler*) 10 mg INH Q2H PRN PRN Reason: CRAVING Senna (Senokot Tab*) 2 tab PO BID [facility] Last Admin: 01/30/18 09:22 Dose: 2 tab
[2018-01-30] MEDS: Docusate CAP* 100 MG PO SCH (20:21)
[2018-01-30] MEDS: Mirtazapine TAB* 15 MG PO SCH (21:39)
[2018-01-31] MEDS: Morphine ORAL CONCENTRATE* 5 MG/0.25 ML ORAL.SYRIN PO SCH ×5 (00:18→20:12)
[2018-01-31] MEDS: Lisinopril TAB* 10 MG PO SCH (08:48)
[2018-01-31] MEDS: Levothyroxine TAB* 75 MCG TAB PO SCH (08:48)
[2018-01-31] MEDS: Multivitamins/Minerals TAB PO SCH (08:48)
[2018-01-31] MEDS: buPROPion SR TAB.SR* 100 MG PO SCH (08:49)
[2018-01-31] MEDS: Docusate CAP* 100 MG PO SCH ×2 (08:49→20:11)
[2018-01-31] MEDS: Senna TAB PO SCH ×2 (08:49→20:11)
[2018-01-31] MEDS: amLODIPine TAB* 5 MG PO SCH (08:49)
[2018-01-31] MEDS: Mirtazapine TAB* 15 MG PO SCH (21:36)
[2018-02-01] MEDS: Morphine ORAL CONCENTRATE* 5 MG/0.25 ML ORAL.SYRIN PO SCH ×5 (00:46→20:11)
[2018-02-01] MEDS: Levothyroxine TAB* 75 MCG TAB PO SCH (07:26)
[2018-02-01] MEDS: Multivitamins/Minerals TAB PO SCH (08:37)
[2018-02-01] MEDS: Lisinopril TAB* 10 MG PO SCH (08:37)
[2018-02-01] MEDS: Senna TAB PO SCH ×2 (08:37→20:11)
[2018-02-01] MEDS: amLODIPine TAB* 5 MG PO SCH (08:38)
[2018-02-01] MEDS: Docusate CAP* 100 MG PO SCH ×2 (08:38→20:11)
[2018-02-01] MEDS: buPROPion SR TAB.SR* 100 MG PO SCH (08:38)
--- NOTE | 2018-02-01 15:55 | PN ---
Subjective - Subjective Date of Service: 02/01/18 Service Type: 17569 Hosp care 25 min moderate complexity Subjective: Ms. Reagan appears to be well adjusted to the unit and finds the therapeutic envioronment very helpful. She is less anxious, less depressed and more optimistic about her situation. Trying to fight the whole thing about her terminal stage and looking forwards to make the best out of it. Talks a lot about the struggle she went through last few years and now wants to do her best. Denies any SI or psychosis. Pain is in very good control, resting well, appetite has been good as well. Meds are also helping. Objective - Appearance Appearance: Healthy Appearing Dysmorphic Features: No Hygiene: Normal Grooming: Fairly Well Kept - Behavior Psychomotor Activities: Normal Exhibits Abnormal Movement: No - Attitude and Relatedness Attitude and Relatedness: Appropriate Eye Contact: Good - Speech Quality: Unpressured Latencies: Normal Quantity: Appropriate - Mood Patient's Decription of Mood: "Fine" - Affect Observed Affect: Good Affect Consistent with: Euthymia - Thought Process Patient's Thought Process: Coherent, Goal Directed Thought Content: No Passive Wish, No Suicidal Planning, No Homicidal Ideation, No Paranoid Ideation - Sensorium Experiencing Hallucinations: No, Sensorium is Clear Type of Hallucinations: Visual: No, Auditory: No, Command: No - Level of Consciousness Level of Consciousness: Alert Orientation: Yes Intact, Yes Orientated to Time, Yes Orientated to Place, Yes Orientated to Person - Impulse Control Impulse Control: Intact - Insight and Judgement Insight and Judgement: Fair - Group Participation Particating in Group Activities: Yes - Medication Management Medication Management Adherence: Yes Assessment - Assessment Merits Inpatient Hospitalization: For Immediate Safety, Consolidate Improvements , Pending Safe DC Plan Clinical Impression: Appears to be doing well but need more time for consolidation of the gains and for a safe discharge plans. Plan - Plan Treatment Plan: Name: AMRIT LEYVA Birthdate: 1950 [id number] Continued Medication Management: Continue Outpt Medication Medications: Current Medications Acetaminophen (Tylenol Tab*) 650 mg PO Q4H PRN PRN Reason: for pain; or Temp >101 F Last Admin: 01/28/18 09:50 Dose: 650 mg Al Hydrox/Mg Hydrox/Simethicone (Maalox Plus*) 30 ml PO Q4H PRN PRN Reason: INDIGESTION Amlodipine Besylate (Norvasc Tab*) 10 mg PO DAILY [facility] Last Admin: 02/01/18 08:38 Dose: 10 mg Bupropion HCl (Wellbutrin Sr Tab*) 100 mg PO DAILY@0900 [facility] Last Admin: 02/01/18 08:38 Dose: 100 mg Diphenhydramine HCl (Benadryl Po*) 25 mg PO BEDTIME PRN PRN Reason: INSOMNIA Docusate Sodium (Colace Cap*) 100 mg PO BID [facility] Last Admin: 02/01/18 08:38 Dose: 100 mg Ibuprofen (Motrin Tab*) 400 mg PO Q6H PRN PRN Reason: PAIN Last Admin: 01/28/18 08:10 Dose: 400 mg Levothyroxine Sodium (Synthroid Tab*) 75 mcg PO 0600 [facility] Last Admin: 02/01/18 07:26 Dose: 75 mcg Lisinopril (Prinivil Tab*) 10 mg PO DAILY [facility] Last Admin: 02/01/18 08:37 Dose: 10 mg Lorazepam (Ativan Tab(*)) 1 mg PO Q6H PRN PRN Reason: anxiety/insomia Mirtazapine (Remeron Tab*) 7.5 mg PO BEDTIME [facility] Last Admin: 01/31/18 21:36 Dose: 7.5 mg Morphine Sulfate (Morphine Oral Concentrate*) 5 mg SL Q2H PRN PRN Reason: PAIN Last Admin: 01/30/18 09:59 Dose: 5 mg Morphine Sulfate (Morphine Oral Concentrate*) 10 mg SL Q2H PRN PRN Reason: PAIN Morphine Sulfate (Morphine Oral Concentrate*) 5 mg PO 0800,1200,1600,2000 [facility] Last Admin: 02/01/18 11:55 Dose: 5 mg Morphine Sulfate (Morphine Oral Concentrate*) 5 mg PO 0000 [facility] Last Admin: 02/01/18 00:46 Dose: 5 mg Multivitamins/Minerals (Theragran/Minerals Tab*) 1 tab PO DAILY [facility] Last Admin: 02/01/18 08:37 Dose: 1 tab Nicotine (Nicotine Inhaler*) 10 mg INH Q2H PRN PRN Reason: CRAVING Senna (Senokot Tab*) 2 tab PO BID [facility] Last Admin: 02/01/18 08:37 Dose: 2 tab - Discharge Plan Discharge Plan: Outpatient Follow Up Outpatient Program: [facility]
[2018-02-01] MEDS: Morphine ORAL CONCENTRATE* 5 MG/0.25 ML ORAL.SYRIN SL PRN (18:30)
[2018-02-01] MEDS: Mirtazapine TAB* 15 MG PO SCH (22:01)
[2018-02-02] MEDS: Morphine ORAL CONCENTRATE* 5 MG/0.25 ML ORAL.SYRIN PO SCH ×5 (01:18→20:08)
[2018-02-02] MEDS: Morphine ORAL CONCENTRATE* 5 MG/0.25 ML ORAL.SYRIN SL PRN ×2 (06:15→14:19)
[2018-02-02] MEDS: Docusate CAP* 100 MG PO SCH ×2 (08:59→20:09)
[2018-02-02] MEDS: amLODIPine TAB* 5 MG PO SCH (09:00)
[2018-02-02] MEDS: Lisinopril TAB* 10 MG PO SCH (09:00)
[2018-02-02] MEDS: Multivitamins/Minerals TAB PO SCH (09:00)
[2018-02-02] MEDS: buPROPion SR TAB.SR* 100 MG PO SCH (09:00)
[2018-02-02] MEDS: Senna TAB PO SCH ×2 (09:00→20:09)
[2018-02-02] MEDS: Levothyroxine TAB* 75 MCG TAB PO SCH (09:03)
--- NOTE | 2018-02-02 13:13 | PN ---
MHU: Group Therapy Note - Service Type Service Type: 11204 Group Psychotherapy - Cognitive Behavioral Group Therapy ( CBT):Patient attended CBT programming this morning and presented with flat affect that did not vary with discussion. Although responsive to direct prompts to respond to questions, patient did not engage in spontaneous conversation.
--- NOTE | 2018-02-02 14:02 | PN ---
Subjective - Subjective Subjective: Psychiatric Attending Progress Note Nursing and Phsyician weekend notes reviewed. Patient's mental status, social and emotional functioning improved significantly relative to her admission status. patient is sleeping 7 to 8 hours nightly. Pain control has been excellent with 5mg of Morphine 5 times daily scheduled @ 08 AM, 12 noon, 4 PM, 8 PM and Midnight. Patient has required 0 or one additional prn dose of morphine 5 mg over weekend. She has been attending groups and reports that she very much has enjoyed the interaction with peers and the structured groups. Met with patient today along with progress worker Joy Reddy. Patient reported that her mood is brighter. She believes the combination of antidepressant medication and the daily socialization have been recuperative. She denies suicidal ideation, intent, or plan. She reports that she has not had suicidal thoughts since last . Patient is organized, coherent, with normal speech. psychomotor behavior is normal. She has no psychotic symptoms. She is fully alert and oriented. Her insight and judgment are intact. Patient does not feel she can return to living alone due to risk of deterioration in mental status secondary to isolation and lack of daily contact. she is very much in favor of transitioning to hospicare or to a nursing facility while she awaits hospicare. Impression: patient is not danger to self. Suicidal ideation has remitted. she contracts to alert staff at the next facility if she is feeling pain which is likely the main determinant of suicidle thoughts pain is well controlled Plan: Increase Wellbutrin SR to 150 mg QAM meeting tomorrow with hospice team to discuss discharge plan continue remeron 7.5 mg QHS Plan - Plan Treatment Plan: Name: AMRIT LEYVA Birthdate: 1950 [id number] Medications: Current Medications Acetaminophen (Tylenol Tab*) 650 mg PO Q4H PRN PRN Reason: for pain; or Temp >101 F Last Admin: 01/28/18 09:50 Dose: 650 mg Al Hydrox/Mg Hydrox/Simethicone (Maalox Plus*) 30 ml PO Q4H PRN PRN Reason: INDIGESTION Amlodipine Besylate (Norvasc Tab*) 10 mg PO DAILY [facility] Last Admin: 02/02/18 09:00 Dose: 10 mg Bupropion HCl (Wellbutrin Sr Tab*) 100 mg PO DAILY@0900 [facility] Last Admin: 02/02/18 09:00 Dose: 100 mg Diphenhydramine HCl (Benadryl Po*) 25 mg PO BEDTIME PRN PRN Reason: INSOMNIA Docusate Sodium (Colace Cap*) 100 mg PO BID [facility] Last Admin: 02/02/18 08:59 Dose: 100 mg Ibuprofen (Motrin Tab*) 400 mg PO Q6H PRN PRN Reason: PAIN Last Admin: 01/28/18 08:10 Dose: 400 mg Levothyroxine Sodium (Synthroid Tab*) 75 mcg PO 0600 [facility] Last Admin: 02/02/18 09:03 Dose: 75 mcg Lisinopril (Prinivil Tab*) 10 mg PO DAILY [facility] Last Admin: 02/02/18 09:00 Dose: 10 mg Lorazepam (Ativan Tab(*)) 1 mg PO Q6H PRN PRN Reason: anxiety/insomia Mirtazapine (Remeron Tab*) 7.5 mg PO BEDTIME [facility] Last Admin: 02/01/18 22:01 Dose: 7.5 mg Morphine Sulfate (Morphine Oral Concentrate*) 5 mg SL Q2H PRN PRN Reason: PAIN Last Admin: 02/02/18 06:15 Dose: 5 mg Morphine Sulfate (Morphine Oral Concentrate*) 10 mg SL Q2H PRN PRN Reason: PAIN Morphine Sulfate (Morphine Oral Concentrate*) 5 mg PO 0800,1200,1600,2000 [facility] Last Admin: 02/02/18 12:18 Dose: 5 mg Morphine Sulfate (Morphine Oral Concentrate*) 5 mg PO 0000 [facility] Last Admin: 02/02/18 01:18 Dose: 5 mg Multivitamins/Minerals (Theragran/Minerals Tab*) 1 tab PO DAILY [facility] Last Admin: 02/02/18 09:00 Dose: 1 tab Nicotine (Nicotine Inhaler*) 10 mg INH Q2H PRN PRN Reason: CRAVING Senna (Senokot Tab*) 2 tab PO BID [facility] Last Admin: 02/02/18 09:00 Dose: 2 tab
[2018-02-02] MEDS: Mirtazapine TAB* 15 MG PO SCH (22:16)
[2018-02-03] MEDS: Morphine ORAL CONCENTRATE* 5 MG/0.25 ML ORAL.SYRIN PO SCH ×5 (02:02→19:53)
[2018-02-03] MEDS: Levothyroxine TAB* 75 MCG TAB PO SCH (07:26)
[2018-02-03] MEDS: Multivitamins/Minerals TAB PO SCH (08:21)
[2018-02-03] MEDS: Docusate CAP* 100 MG PO SCH ×2 (08:21→19:53)
[2018-02-03] MEDS: Lisinopril TAB* 10 MG PO SCH (08:21)
[2018-02-03] MEDS: buPROPion SR TAB.SR* 100 MG PO SCH (08:23)
[2018-02-03] MEDS: Senna TAB PO SCH ×2 (08:23→19:53)
[2018-02-03] MEDS: amLODIPine TAB* 5 MG PO SCH (08:24)
--- NOTE | 2018-02-03 08:44 | PN ---
Progress Note - Progress Note Date of Service: 02/03/18 Note: Stopped in to see patient, who presents with an entirely different affect from her admission. I appreciate the excellent care and attention she has received on the U. Judie is communicative, makes good eye contact, and is very rational in assessing her needs. Her pain is well controlled with morphine with no significant side effects, and she is sleeping well with her current Remeron dose. She feels she would do best if she were not to return to her home, as she is very isolated there and would have difficulty adjusting to the absence of her cats. She would like to come to the [facility] residence, and I think this is a very reasonable option. I will await the conclusions of the meeting scheduled for today for further discharge planning.
[2018-02-03] MEDS: Morphine ORAL CONCENTRATE* 5 MG/0.25 ML ORAL.SYRIN SL PRN (09:05)
--- NOTE | 2018-02-03 13:10 | PN ---
MHU: Group Therapy Note - Service Type Service Type: [id number] Group Psychotherapy - Cognitive Behavioral Group Therapy ( CBT):Patient was attentive and participatory in CBT programming this morning, and remained in good behavioral control. Patient expressed positive insights regarding relevant treatment interventions and goals.
[2018-02-03] MEDS: Mirtazapine TAB* 15 MG PO SCH (19:53)
[2018-02-04] MEDS: Morphine ORAL CONCENTRATE* 5 MG/0.25 ML ORAL.SYRIN PO SCH ×5 (00:06→20:04)
[2018-02-04] MEDS: Levothyroxine TAB* 75 MCG TAB PO SCH (06:48)
[2018-02-04] MEDS: Morphine ORAL CONCENTRATE* 5 MG/0.25 ML ORAL.SYRIN SL PRN (06:49)
[2018-02-04] MEDS: Multivitamins/Minerals TAB PO SCH (08:38)
[2018-02-04] MEDS: Senna TAB PO SCH ×2 (08:39→20:06)
[2018-02-04] MEDS: Lisinopril TAB* 10 MG PO SCH (08:39)
[2018-02-04] MEDS: amLODIPine TAB* 5 MG PO SCH (08:39)
[2018-02-04] MEDS: buPROPion SR TAB.SR* 100 MG PO SCH (08:40)
[2018-02-04] MEDS: Docusate CAP* 100 MG PO SCH ×2 (08:41→20:05)
--- NOTE | 2018-02-04 10:41 | PN ---
Subjective - Subjective Subjective: psychiatric attending progress note: per nursing patient has been participating actively in unit programming. She shows no evidence of dysphoric affect or agitation. To the contrary, she shows bright affect and is social with other patients. She rates her pain as 2/10 to 4/10 with breakthrough pain noted at 6 to7 am which is after she has awaken for day. Nursing note from hospice nurse Marquita reviewed. I met with Judie who feels she would benefit from adding a scheduled morphine dose at 6 AM daily MSE: well related. good eye contact. in no distress. speech normal rate and volume mood: euthymic affect full range. Thought process organized, coherent Thought content: denies suicidal ideation, intent or plan. no psychotic symptoms present Alert and fully oriented. Insight and judgment are intact. Impression: unspecified depressive disorder ovarian cancer stage 4 with bone metastasis stable from psychiatric standpoint. patient is not suicidal. Her pain is well controlled. patient cannot return home as she would be isolated and at risk for becoming depressed. Patient is low risk for repeat suicide attempt as long as pain is well controlled. Plan: d/c to hospicare or [facility] with psychiatric specialty add 6 am dose of morphine sulfate. so now she will be receiving Morphine sulfate 5 mg six times daily (6am,8am, 12 noon, 4pm, 8pm and midnight) Plan - Plan Medications: Current Medications Acetaminophen (Tylenol Tab*) 650 mg PO Q4H PRN PRN Reason: for pain; or Temp >101 F Last Admin: 01/28/18 09:50 Dose: 650 mg Al Hydrox/Mg Hydrox/Simethicone (Maalox Plus*) 30 ml PO Q4H PRN PRN Reason: INDIGESTION Amlodipine Besylate (Norvasc Tab*) 10 mg PO DAILY [facility] Last Admin: 02/04/18 08:39 Dose: 10 mg Bupropion HCl (Wellbutrin Sr Tab*) 150 mg PO DAILY@0900 [facility] Last Admin: 02/04/18 08:40 Dose: 150 mg Diphenhydramine HCl (Benadryl Po*) 25 mg PO BEDTIME PRN PRN Reason: INSOMNIA Docusate Sodium (Colace Cap*) 100 mg PO BID [facility] Last Admin: 02/04/18 08:41 Dose: 100 mg Ibuprofen (Motrin Tab*) 400 mg PO Q6H PRN PRN Reason: PAIN Last Admin: 01/28/18 08:10 Dose: 400 mg Levothyroxine Sodium (Synthroid Tab*) 75 mcg PO 0600 [facility] Last Admin: 02/04/18 06:48 Dose: 75 mcg Lisinopril (Prinivil Tab*) 10 mg PO DAILY [facility] Last Admin: 02/04/18 08:39 Dose: 10 mg Lorazepam (Ativan Tab(*)) 1 mg PO Q6H PRN PRN Reason: anxiety/insomia Mirtazapine (Remeron Tab*) 7.5 mg PO BEDTIME [facility] Last Admin: 02/03/18 19:53 Dose: 7.5 mg Morphine Sulfate (Morphine Oral Concentrate*) 5 mg SL Q2H PRN PRN Reason: PAIN Last Admin: 02/04/18 06:49 Dose: 5 mg Morphine Sulfate (Morphine Oral Concentrate*) 10 mg SL Q2H PRN PRN Reason: PAIN Morphine Sulfate (Morphine Oral Concentrate*) 5 mg PO 0800,1200,1600,2000 [facility] Last Admin: 02/04/18 08:12 Dose: 5 mg Morphine Sulfate (Morphine Oral Concentrate*) 5 mg PO 0000 [facility] Last Admin: 02/04/18 00:06 Dose: 5 mg Multivitamins/Minerals (Theragran/Minerals Tab*) 1 tab PO DAILY [facility] Last Admin: 02/04/18 08:38 Dose: 1 tab Nicotine (Nicotine Inhaler*) 10 mg INH Q2H PRN PRN Reason: CRAVING Senna (Senokot Tab*) 2 tab PO BID [facility] Last Admin: 02/04/18 08:39 Dose: 2 tab
[2018-02-04] MEDS: Mirtazapine TAB* 15 MG PO SCH (21:16)
[2018-02-05] MEDS: Morphine ORAL CONCENTRATE* 5 MG/0.25 ML ORAL.SYRIN PO SCH ×4 (01:40→16:03)
[2018-02-05] MEDS ORDERED: Morphine ORAL CONCENTRATE* 5 MG/0.25 ML ORAL.SYRIN PO SCH (06:00)
[2018-02-05 07:53] VITALS: BP 108/58
[2018-02-05] MEDS: Senna TAB PO SCH (08:24)
[2018-02-05] MEDS: Lisinopril TAB* 10 MG PO SCH (08:24)
[2018-02-05] MEDS: Levothyroxine TAB* 75 MCG TAB PO SCH (08:24)
[2018-02-05] MEDS: amLODIPine TAB* 5 MG PO SCH (08:25)
[2018-02-05] MEDS: buPROPion SR TAB.SR* 100 MG PO SCH (08:25)
[2018-02-05] MEDS: Multivitamins/Minerals TAB PO SCH (08:25)
[2018-02-05] MEDS: Docusate CAP* 100 MG PO SCH (08:25)
--- NOTE | 2018-02-05 13:38 | PN ---
Plan - Plan Treatment Plan: Name: AMRIT LEYVA Birthdate: 1950 [id number] Medications: Current Medications Acetaminophen (Tylenol Tab*) 650 mg PO Q4H PRN PRN Reason: for pain; or Temp >101 F Last Admin: 01/28/18 09:50 Dose: 650 mg Al Hydrox/Mg Hydrox/Simethicone (Maalox Plus*) 30 ml PO Q4H PRN PRN Reason: INDIGESTION Amlodipine Besylate (Norvasc Tab*) 10 mg PO DAILY [facility] Last Admin: 02/05/18 08:25 Dose: 10 mg Bupropion HCl (Wellbutrin Sr Tab*) 150 mg PO DAILY@0900 [facility] Last Admin: 02/05/18 08:25 Dose: 150 mg Diphenhydramine HCl (Benadryl Po*) 25 mg PO BEDTIME PRN PRN Reason: INSOMNIA Docusate Sodium (Colace Cap*) 100 mg PO BID [facility] Last Admin: 02/05/18 08:25 Dose: 100 mg Ibuprofen (Motrin Tab*) 400 mg PO Q6H PRN PRN Reason: PAIN Last Admin: 01/28/18 08:10 Dose: 400 mg Levothyroxine Sodium (Synthroid Tab*) 75 mcg PO 0600 [facility] Last Admin: 02/05/18 08:24 Dose: 75 mcg Lisinopril (Prinivil Tab*) 10 mg PO DAILY [facility] Last Admin: 02/05/18 08:24 Dose: 10 mg Lorazepam (Ativan Tab(*)) 1 mg PO Q6H PRN PRN Reason: anxiety/insomia Mirtazapine (Remeron Tab*) 7.5 mg PO BEDTIME [facility] Last Admin: 02/04/18 21:16 Dose: 7.5 mg Morphine Sulfate (Morphine Oral Concentrate*) 5 mg SL Q2H PRN PRN Reason: PAIN Last Admin: 02/04/18 06:49 Dose: 5 mg Morphine Sulfate (Morphine Oral Concentrate*) 10 mg SL Q2H PRN PRN Reason: PAIN Morphine Sulfate (Morphine Oral Concentrate*) 5 mg PO 0800,1200,1600,2000 [facility] Last Admin: 02/05/18 12:01 Dose: 5 mg Morphine Sulfate (Morphine Oral Concentrate*) 5 mg PO 0000 [facility] Last Admin: 02/05/18 01:40 Dose: 5 mg Morphine Sulfate (Morphine Oral Concentrate*) 5 mg PO 0600 [facility] Last Admin: 02/05/18 06:18 Dose: 5 mg Multivitamins/Minerals (Theragran/Minerals Tab*) 1 tab PO DAILY [facility] Last Admin: 02/05/18 08:25 Dose: 1 tab Nicotine (Nicotine Inhaler*) 10 mg INH Q2H PRN PRN Reason: CRAVING Senna (Senokot Tab*) 2 tab PO BID [facility] Last Admin: 02/05/18 08:24 Dose: 2 tab
--- NOTE | 2018-02-05 14:47 | DCNOTE ---
Subjective - Subjective Subjective: DISCHARGE SUMMARY PATIENT: : AGE: PROVIDER: DATE OF ADMISSION: DATE OF DISCHARGE: DISCHARGE DIAGNOSES: CONDITION AT THE TIME OF DISCHARGE: MENTAL STATUS EXAM AT DISCHARGE: DISCHARGE INSTRUCTIONS: A. MEDICATIONS: B. DIET: C. ACTIVITIES: TOLERATED NICOTINE REPLACEMENT THERAPY WAS OFFERED BUT THE PATIENT DECLINED IT, INDICATING THAT HIS PREFERENCE IS TO CONTINUE SMOOKING FOR THE TIME BEING. DESPITE THIS, HE WAS GIVEN THE [facility] QUITLINE WHICH IS [phone] THERE ARE NO LABORATORY OR DIAGNOSTIC STUDIES PENDING AT THE TIME OF DISCHARGE. D. FOLLOW UP CARE: E. SUBSTANCE ABUSE FOLLOWUP: ATTENDING PSYCHIATRIST HOSPITAL COURSE: PART A. REASON FOR ADMISSION: HOSPITAL COURSE : PART B PSYCHIATRIC TREATMENT RENDERED: WALTER BUI DO
--- NOTE | 2018-02-05 16:47 | PN ---
MHU: Group Therapy Note - Service Type Service Type: [id number] Group Psychotherapy - Medication Education Group: Patient attended group and presented with flat affect that did not vary with discussion. Although responsive to direct prompts to respond to questions, patient did not engage in spontaneous conversation.
[2018-02-06] MEDS ORDERED: buPROPion SR TAB.SR* 150 MG PO SCH (09:00)
== END 2018-02-05 18:31 | disposition short-term general hospital (02) | DRG 754 ==
LOC: ED 22:09 → BSU 01-27 18:13
PROVIDERS: ADMIT Psychiatry & Neurology Psychiatry; ATTEND Psychiatry & Neurology Psychiatry
PROC: GZHZZZZ Group Psychotherapy (ICD-10-PCS; principal; 2018-02-02)
DX: F32.9 Major depressive disorder, single episode, unspecified (principal); C56.9 Malignant neoplasm of unspecified ovary; C79.51 Secondary malignant neoplasm of bone; R18.8 Other ascites; T42.4X2A Poisoning by benzodiazepines, intentional self-harm, initial encounter; S01.01XA Laceration without foreign body of scalp, initial encounter; S41.112A Laceration without foreign body of left upper arm, initial encounter; S41.111A Laceration without foreign body of right upper arm, initial encounter; S81.812A Laceration without foreign body, left lower leg, initial encounter; S81.811A Laceration without foreign body, right lower leg, initial encounter; I10 Essential (primary) hypertension; K21.9 Gastro-esophageal reflux disease without esophagitis; M17.0 Bilateral primary osteoarthritis of knee; M19.042 Primary osteoarthritis, left hand; M19.041 Primary osteoarthritis, right hand; F17.210 Nicotine dependence, cigarettes, uncomplicated; Z66 Do not resuscitate; Y92.009 Unspecified place in unspecified non-institutional (private) residence as the place of occurrence of the external cause; Z88.5 Allergy status to narcotic agent; Z88.8 Allergy status to other drugs, medicaments and biological substances; Z88.1 Allergy status to other antibiotic agents; Z91.030 Bee allergy status; X83.8XXA Intentional self-harm by other specified means, initial encounter; Z85.820 Personal history of malignant melanoma of skin
CPT/HCPCS: 36415; 70450; 80053; 80061; 80307; 80320; 80329; 81003; 81015; 82550; 83036; 84443; 85025; 87086; 90715; 90853; 93005; 99222; 99231; 99232; 99238; 99283; A9270-GY; G0480

== ENCOUNTER 2018-02-05 13:37 | Inpatient (IN) | payer OTHER ==
[2018-02-05] MEDS ORDERED: diPHENhydraMINE PO* 25 MG PO PRN (14:53)
[2018-02-05] MEDS ORDERED: LORazepam TAB(*) 1 MG PO PRN (14:53)
[2018-02-05] MEDS ORDERED: Ibuprofen TAB* 400 MG PO PRN (14:56)
[2018-02-05] MEDS ORDERED: Mouth Piece, Nicotine* 1 EACH CARTRIDGE INH PRN (14:56)
[2018-02-05] MEDS ORDERED: Nicotine Inhaler* 10 MG AMP INH PRN (14:56)
[2018-02-05] MEDS ORDERED: Senna TAB PO PRN (15:00)
[2018-02-05] MEDS: Morphine ORAL.SOLN 10 mg* 2 MG/ML UDC 5 ml PO PRN (20:40)
[2018-02-05] MEDS: Mirtazapine TAB* 15 MG PO SCH (20:41)
[2018-02-05] MEDS: Docusate CAP* 100 MG PO SCH (20:41)
--- NOTE | 2018-02-05 21:14 | HP ---
CC: Dr. Gill * [facility] MEDICINE HISTORY AND PHYSICAL: DATE OF ADMISSION: 02/05/18 PRIMARY CARE PHYSICIAN: Dr. Gill. ATTENDING PHYSICIAN: Dr. Arlene East * (dictation provided by Arlette Borjas NP ). CHIEF COMPLAINT: Need for hospice. HISTORY OF PRESENT ILLNESS: Ms. Brar is a 67-year-old female with a past medical history of diagnosis of ovarian cancer in 2016 as well as hypertension and hypothyroidism, who presents to the hospital on 01/26/18 after attempted suicide. Please see the dictated H and P rom the mental health unit providers for details. In brief, the patient had been on chemotherapy for her ovarian cancer for almost 2 years. Despite this, she had a continued rise in her CA- 125. In November, she signed on with hospice. She lived alone and was isolated and grew quite despondent. She was also very fearful about any pain that might be associated with her illness. She attempted to take her life on 01/26/18 with an ativan overdose,. The patient's sister called to check on her and when she did not answer the phone, she sent the police over and she was found unresponsive on the floor. Ms. Brar states that she is feeling better now. She has been on our mental health unit since 01/26/18 receiving services there. She states with this therapeutic services and the social milieu as well as good control of her pain, she is feeling much better. She continues with hospice, but is currently not a candidate to the [facility] residence and plans are for her to be admitted for inpatient hospice here at the hospital. PAST MEDICAL HISTORY: 1. Ovarian cancer, diagnosed in 2016. 2. Hypertension. 3. Hypothyroidism. The patient currently states that her pain is well controlled, but she does have pain in her back and abdomen at times that is well controlled with the morphine regimen currently. MEDICATIONS: Currently are: 1. Tylenol p.r.n. 2. Amlodipine 10 mg p.o. daily. 3. Bupropion SR 150 mg p.o. daily. 4. Benadryl 25 mg p.o. at bedtime p.r.n. insomnia. 5. Docusate 100 mg p.o. b.i.d. 6. Ibuprofen 400 mg p.o. q.6 hours p.r.n. 7. Levothyroxine 75 mcg p.o. daily. 8. Lisinopril 10 mg p.o. daily. 9. Lorazepam 1 mg p.o. q.6 hours p.r.n. anxiety. 10. Mirtazapine 7.5 mg p.o. at bedtime. 11. Morphine oral concentrate 5 to 10 mg sublingual q.2 hours p.r.n., morphine oral concentrate 5 mg at 6, 8, 12 and midnight routinely. 12. Multivitamin mineral 1 tab p.o. daily. 13. Nicotine inhaler as needed. 14. Senna 2 tabs p.o. at bedtime. ALLERGIES: CODEINE, ONDANSETRON, and PROCHLORPERAZINE. FAMILY HISTORY: Reviewed and noncontributory. SOCIAL HISTORY: The patient does have a history of tobacco use. No report of alcohol or drug use. REVIEW OF SYSTEMS: A 14-point review of systems was completed with Ms. Brar and all those not mentioned above were negative. PHYSICAL EXAMINATION GENERAL: Ms. Brar is sitting in the milieu. She is in no acute distress. VITAL SIGNS: Temperature 98.4, heart rate 90, respiratory rate 16, O2 saturation 98% on room air, and blood pressure 108/58. LUNGS: Clear to auscultation bilaterally. No accessory muscle use and good aeration. HEART: S1, S2. No murmur, rub, or gallop and regular. ABDOMEN: Soft, nontender with bowel sounds positive x4. EXTREMITIES: No cyanosis or edema. NEUROLOGIC: She is alert. She is oriented x3. She moves all extremities equally. There is no facial asymmetry or focal weakness. Extraocular movements are intact. SKIN: Intact. The patient does have bruising under her eyes, which appears to be fading. The patient states this is related to falling at the time of her suicide attempt secondary to Ativan overdose. ASSESSMENT AND PLAN: Ms. Brar is a 67-year-old female with past medical history of ovarian cancer, hypertension and hypothyroidism, who presented to the hospital on 01/26/18 after Ativan overdose and attempted suicide. Our plans are for an inpatient admission as expected length of stay to be greater than 2 days for the followin. Hospice. The patient is being admitted for hospice care. We will continue with morphine p.r.n. for her pain in the abdomen and back. Hospice services will be following along as well. 2. Hypertension. Continue amlodipine, lisinopril. 3. Hypothyroidism. Continue levothyroxine. 4. Depression. Continue bupropion. 5. Anxiety. Continue lorazepam. 6. Code status is DNR. TIME SPENT: Approximately 60 minutes was spent on admission of this patient; more than half time spent with the patient at the bedside reviewing the events leading up to this hospitalization, performing the physical examination and reviewing the plan of care. ARLETTE BORJAS NP [id number]/CPS #: [id number] JEFFREY
[2018-02-06] MEDS ORDERED: Morphine ORAL.SOLN 10 mg* 2 MG/ML UDC 5 ml PO SCH
[2018-02-06] MEDS: Morphine ORAL.SOLN 10 mg* 2 MG/ML UDC 5 ml PO SCH ×4 (01:00→13:04)
[2018-02-06] MEDS: Levothyroxine TAB* 75 MCG TAB PO SCH (06:22)
[2018-02-06] MEDS: amLODIPine TAB* 5 MG PO SCH (08:05)
[2018-02-06] MEDS: Docusate CAP* 100 MG PO SCH ×2 (08:05→20:16)
[2018-02-06] MEDS: buPROPion SR TAB.SR* 150 MG PO SCH (08:05)
[2018-02-06] MEDS: Lisinopril TAB* 10 MG PO SCH (08:05)
[2018-02-06] MEDS: Multivitamins/Minerals TAB PO SCH (08:05)
[2018-02-06] MEDS: Morphine ORAL.SOLN 10 mg* 2 MG/ML UDC 5 ml PO PRN ×3 (10:15→20:17)
--- NOTE | 2018-02-06 10:51 | PN ---
Subjective Date of Service: 02/06/18 Interval History: Patient seen and examined. No acute overnight events. States she is having breakthrough pain this morning. Denies, fever, fatigue, chills. No cough, SOB or chest pain. Abdominal pain 7/10 at present. No n/v/d. Objective Active Medications: Amlodipine Besylate (Norvasc Tab*) 10 mg PO DAILY [facility] Last Admin: 02/06/18 08:05 Dose: 10 mg Bupropion HCl (Wellbutrin Sr Tab*) 150 mg PO DAILY [facility] Last Admin: 02/06/18 08:05 Dose: 150 mg Device (Nicotine Mouth Piece*) 1 each INH .USE WITH NICOTROL PRN PRN Reason: CRAVING Diphenhydramine HCl (Benadryl Po*) 25 mg PO BEDTIME PRN PRN Reason: INSOMNIA Docusate Sodium (Colace Cap*) 100 mg PO BID [facility] Last Admin: 02/06/18 08:05 Dose: 100 mg Ibuprofen (Motrin Tab*) 400 mg PO Q6H PRN PRN Reason: PAIN Levothyroxine Sodium (Synthroid Tab*) 75 mcg PO DAILY@0600 [facility] Last Admin: 02/06/18 06:22 Dose: 75 mcg Lisinopril (Prinivil Tab*) 10 mg PO DAILY [facility] Last Admin: 02/06/18 08:05 Dose: 10 mg Lorazepam (Ativan Tab(*)) 1 mg PO Q6H PRN PRN Reason: Anxiety/insomnia Mirtazapine (Remeron Tab*) 15 mg PO BEDTIME [facility] Last Admin: 02/05/18 20:41 Dose: 15 mg Morphine Sulfate (Morphine Oral.Soln 10 Mg*) 5 mg PO Q2H PRN PRN Reason: PAIN Last Admin: 02/06/18 10:15 Dose: 5 mg Morphine Sulfate (Morphine Oral.Soln 10 Mg*) 10 mg PO Q2H PRN PRN Reason: PAIN Morphine Sulfate (Morphine Oral.Soln 10 Mg*) 5 mg PO 0001,0600,0800,1200 [facility] Last Admin: 02/06/18 08:05 Dose: 5 mg Multivitamins/Minerals (Theragran/Minerals Tab*) 1 tab PO DAILY [facility] Last Admin: 02/06/18 08:05 Dose: 1 tab Nicotine (Nicotine Inhaler*) 10 mg INH Q2H PRN PRN Reason: CRAVING Senna (Senokot Tab*) 1 tab PO BEDTIME PRN PRN Reason: CONSTIPATION Last Admin: 02/05/18 20:46 Dose: 1 tab Vital Signs - 8 hr 02/06/18 02/06/18 02/06/18 03:00 04:12 06:27 Temperature 98.0 F Pulse Rate 66 Respiratory 16 16 18 Rate Blood Pressure 107/52 (mmHg) O2 Sat by Pulse 97 Oximetry 02/06/18 02/06/18 02/06/18 08:00 08:05 08:09 Temperature 98.0 F Pulse Rate 73 Respiratory 18 18 16 Rate Blood Pressure 110/64 (mmHg) O2 Sat by Pulse 98 Oximetry 02/06/18 02/06/18 09:13 10:15 Temperature Pulse Rate Respiratory 18 18 Rate Blood Pressure (mmHg) O2 Sat by Pulse Oximetry Oxygen Devices in Use Now: None Appearance: Alert, NAD Eyes: No Scleral Icterus, PERRLA Ears/Nose/Mouth/Throat: Mucous Membranes Moist, - - Ecchymosis/bruising under both eyes Neck: Trachea Midline Respiratory: Symmetrical Chest Expansion and Respiratory Effort, Clear to Auscultation Cardiovascular: NL Sounds; No Murmurs; No JVD, RRR Abdominal: - - tender to palpation/diffuse, mild distension Extremities: No Edema Neurological: Alert and Oriented x 3 Nutrition: Taking PO's Assess/Plan/Problems-Billing Assessment: - Patient Problems (1) Major depressive disorder, single episode, unspecified Code(s): F32.9 - MAJOR DEPRESSIVE DISORDER, SINGLE EPISODE, UNSPECIFIED SNOMED Code(s): 09181117 Comment: - Transferred from [facility] - Continue SSRI and ativan (2) Bone metastases Code(s): C79.51 - SECONDARY MALIGNANT NEOPLASM OF BONE SNOMED Code(s): 40513701 Comment: - Continue pain meds at current regimen (3) Hypertension Code(s): I10 - ESSENTIAL (PRIMARY) HYPERTENSION SNOMED Code(s): 39550889 Comment: - Continue amlodipine and lisinopril, BP stable (4) Ovarian cancer Comment: - Continue pain management and comfort measures Status and Disposition: Transfer to hospice bed when available.
[2018-02-06] MEDS: Mirtazapine TAB* 15 MG PO SCH (21:48)
[2018-02-07] MEDS: Morphine ORAL.SOLN 10 mg* 2 MG/ML UDC 5 ml PO SCH ×5 (00:02→23:44)
[2018-02-07] MEDS: Levothyroxine TAB* 75 MCG TAB PO SCH (05:26)
[2018-02-07] MEDS: Lisinopril TAB* 10 MG PO SCH (09:31)
[2018-02-07] MEDS: Senna TAB PO SCH ×2 (09:31→20:03)
[2018-02-07] MEDS: Docusate CAP* 100 MG PO SCH ×2 (09:31→20:04)
[2018-02-07] MEDS: buPROPion SR TAB.SR* 150 MG PO SCH (09:31)
[2018-02-07] MEDS: Multivitamins/Minerals TAB PO SCH (09:31)
[2018-02-07] MEDS: amLODIPine TAB* 5 MG PO SCH (09:31)
[2018-02-07] MEDS: Morphine ORAL.SOLN 10 mg* 2 MG/ML UDC 5 ml PO PRN ×2 (15:42→20:04)
--- NOTE | 2018-02-07 17:03 | PN ---
Subjective Date of Service: 02/07/18 Interval History: pain is controlled. she feels okay and has no suicidal ideas or homicidal ideas. she would like to go live in [place] near her sister but does not think she can live with her sister, so she is not sure where she'll go when she leaves here. Family History: Unchanged from Admission Social History: Unchanged from Admission Past Medical History: Unchanged from Admission Objective Active Medications: Amlodipine Besylate (Norvasc Tab*) 10 mg PO DAILY [facility] Last Admin: 02/07/18 09:31 Dose: 10 mg Bupropion HCl (Wellbutrin Sr Tab*) 150 mg PO DAILY [facility] Last Admin: 02/07/18 09:31 Dose: 150 mg Device (Nicotine Mouth Piece*) 1 each INH .USE WITH NICOTROL PRN PRN Reason: CRAVING Diphenhydramine HCl (Benadryl Po*) 25 mg PO BEDTIME PRN PRN Reason: INSOMNIA Docusate Sodium (Colace Cap*) 100 mg PO BID [facility] Last Admin: 02/07/18 09:31 Dose: 100 mg Ibuprofen (Motrin Tab*) 400 mg PO Q6H PRN PRN Reason: PAIN Levothyroxine Sodium (Synthroid Tab*) 75 mcg PO DAILY@0600 [facility] Last Admin: 02/07/18 05:26 Dose: 75 mcg Lisinopril (Prinivil Tab*) 10 mg PO DAILY [facility] Last Admin: 02/07/18 09:31 Dose: 10 mg Lorazepam (Ativan Tab(*)) 1 mg PO Q6H PRN PRN Reason: Anxiety/insomnia Mirtazapine (Remeron Tab*) 15 mg PO BEDTIME [facility] Last Admin: 02/06/18 21:48 Dose: 15 mg Morphine Sulfate (Morphine Oral.Soln 10 Mg*) 5 mg PO Q2H PRN PRN Reason: PAIN Last Admin: 02/07/18 15:42 Dose: 5 mg Morphine Sulfate (Morphine Oral.Soln 10 Mg*) 10 mg PO Q2H PRN PRN Reason: PAIN Morphine Sulfate (Morphine Oral.Soln 10 Mg*) 5 mg PO 0001,0600,0800,1200 [facility] Last Admin: 02/07/18 11:52 Dose: 5 mg Multivitamins/Minerals (Theragran/Minerals Tab*) 1 tab PO DAILY [facility] Last Admin: 02/07/18 09:31 Dose: 1 tab Nicotine (Nicotine Inhaler*) 10 mg INH Q2H PRN PRN Reason: CRAVING Senna (Senokot Tab*) 2 tab PO BID [facility] Last Admin: 02/07/18 09:31 Dose: 2 tab Vital Signs - 8 hr 02/07/18 02/07/18 02/07/18 09:32 11:08 11:52 Temperature 98.2 F Pulse Rate 73 Respiratory 18 16 18 Rate Blood Pressure 153/62 (mmHg) O2 Sat by Pulse 100 Oximetry 02/07/18 02/07/18 15:00 15:42 Temperature Pulse Rate Respiratory 18 18 Rate Blood Pressure (mmHg) O2 Sat by Pulse Oximetry Oxygen Devices in Use Now: None Appearance: alert, no distress, echymoses on both cheeks Eyes: No Scleral Icterus Ears/Nose/Mouth/Throat: NL Teeth, Lips, Gums Neck: NL Appearance and Movements; NL JVP Respiratory: Symmetrical Chest Expansion and Respiratory Effort, Clear to Auscultation Cardiovascular: NL Sounds; No Murmurs; No JVD, RRR Abdominal: NL Sounds; No Tenderness; No Distention, No Hepatosplenomegaly, - - no ascites Lymphatic: No Cervical Adenopathy, No Axillary Adenopathy Extremities: No Edema Skin: No Rash or Ulcers Neurological: Alert and Oriented x 3 Assess/Plan/Problems-Billing Assessment: 67 yo female with stage IV ovarian cancer who had been receiving hospice services as an outpatient was admitted to [facility] for a suicide attempt, now transferred to medicine for hospice. - Patient Problems (1) End of life care Current Visit: Yes Status: Acute Code(s): Z51.5 - ENCOUNTER FOR PALLIATIVE CARE SNOMED Code(s): 073323253 Comment: she is receiving morphine prn and pain is well controlled requiring no iv medications I do not see a need for inpatient hospice need to discuss dispo with case management tomorrow (2) Bone metastases Current Visit: No Status: Acute Code(s): C79.51 - SECONDARY MALIGNANT NEOPLASM OF BONE SNOMED Code(s): 84147410 Comment: pain controlled (3) Major depressive disorder, single episode, unspecified Current Visit: No Status: Acute Code(s): F32.9 - MAJOR DEPRESSIVE DISORDER, SINGLE EPISODE, UNSPECIFIED SNOMED Code(s): 37023401 Comment: With suicide attempt with ativan at admission. Denies SI/HI now. Feels her time in [facility] was helpful. [facility]red from [facility] Continue SSRI and ativan (4) Ovarian cancer Current Visit: No Status: Acute Comment: Stage IV with carcinomatosis Status and Disposition: Transfer to hospice bed when available.
[2018-02-07] MEDS: Mirtazapine TAB* 15 MG PO SCH (21:47)
[2018-02-08] MEDS: Morphine ORAL.SOLN 10 mg* 2 MG/ML UDC 5 ml PO SCH ×3 (05:20→11:39)
[2018-02-08] MEDS: Levothyroxine TAB* 75 MCG TAB PO SCH (05:20)
--- NOTE | 2018-02-08 08:29 | PN ---
Subjective Date of Service: 02/08/18 Interval History: Feels good today, just showered. Pain is controlled with morphine. It is worst in her right ribs. No constipation, nausea. Feels good from a psychiatric standpoint too, feels she is coping with her emotions, does not want to hurt herself or others. Family History: Unchanged from Admission Social History: Unchanged from Admission Past Medical History: Unchanged from Admission Objective Active Medications: Amlodipine Besylate (Norvasc Tab*) 10 mg PO DAILY [facility] Last Admin: 02/07/18 09:31 Dose: 10 mg Bupropion HCl (Wellbutrin Sr Tab*) 150 mg PO DAILY [facility] Last Admin: 02/07/18 09:31 Dose: 150 mg Device (Nicotine Mouth Piece*) 1 each INH .USE WITH NICOTROL PRN PRN Reason: CRAVING Diphenhydramine HCl (Benadryl Po*) 25 mg PO BEDTIME PRN PRN Reason: INSOMNIA Docusate Sodium (Colace Cap*) 100 mg PO BID [facility] Last Admin: 02/07/18 20:04 Dose: 100 mg Ibuprofen (Motrin Tab*) 400 mg PO Q6H PRN PRN Reason: PAIN Levothyroxine Sodium (Synthroid Tab*) 75 mcg PO DAILY@0600 [facility] Last Admin: 02/08/18 05:20 Dose: 75 mcg Lisinopril (Prinivil Tab*) 10 mg PO DAILY [facility] Last Admin: 02/07/18 09:31 Dose: 10 mg Lorazepam (Ativan Tab(*)) 1 mg PO Q6H PRN PRN Reason: Anxiety/insomnia Mirtazapine (Remeron Tab*) 15 mg PO BEDTIME [facility] Last Admin: 02/07/18 21:47 Dose: 15 mg Morphine Sulfate (Morphine Oral.Soln 10 Mg*) 5 mg PO Q2H PRN PRN Reason: PAIN Last Admin: 02/07/18 15:42 Dose: 5 mg Morphine Sulfate (Morphine Oral.Soln 10 Mg*) 10 mg PO Q2H PRN PRN Reason: PAIN Last Admin: 02/07/18 20:04 Dose: 10 mg Morphine Sulfate (Morphine Oral.Soln 10 Mg*) 5 mg PO 0001,0600,0800,1200 [facility] Last Admin: 02/08/18 08:23 Dose: 5 mg Multivitamins/Minerals (Theragran/Minerals Tab*) 1 tab PO DAILY [facility] Last Admin: 02/07/18 09:31 Dose: 1 tab Nicotine (Nicotine Inhaler*) 10 mg INH Q2H PRN PRN Reason: CRAVING Senna (Senokot Tab*) 2 tab PO BID [facility] Last Admin: 02/07/18 20:03 Dose: 2 tab Vital Signs - 8 hr 02/08/18 02/08/18 02/08/18 01:57 05:20 08:23 Respiratory 16 16 16 Rate Oxygen Devices in Use Now: None Appearance: alert, well appearing, no distress Eyes: No Scleral Icterus, - - echymoses b/l cheeks Neck: NL Appearance and Movements; NL JVP Respiratory: Symmetrical Chest Expansion and Respiratory Effort, Clear to Auscultation Cardiovascular: NL Sounds; No Murmurs; No JVD Abdominal: NL Sounds; No Tenderness; No Distention, - - tenderness to palpation right MAL Lymphatic: No Cervical Adenopathy Extremities: No Edema Skin: No Rash or Ulcers, - - tara x 4 occiput Neurological: Alert and Oriented x 3 Assess/Plan/Problems-Billing Assessment: 67 yo female with stage IV ovarian cancer who had been receiving hospice services as an outpatient was admitted to psych for a suicide attempt, now transferred to medicine for hospice. - Patient Problems (1) End of life care Current Visit: Yes Status: Acute Code(s): Z51.5 - ENCOUNTER FOR PALLIATIVE CARE SNOMED Code(s): 708079116 Comment: she is receiving morphine prn and pain is well controlled requiring no iv medications, however it would be unsafe for her to go home with morphine given her recent suicide attempt may need SNF with hospice services (2) Bone metastases Current Visit: No Status: Acute Code(s): C79.51 - SECONDARY MALIGNANT NEOPLASM OF BONE SNOMED Code(s): 41077556 Comment: pain controlled (3) Major depressive disorder, single episode, unspecified Current Visit: No Status: Acute Code(s): F32.9 - MAJOR DEPRESSIVE DISORDER, SINGLE EPISODE, UNSPECIFIED SNOMED Code(s): 13931889 Comment: With suicide attempt with ativan at admission. Denies SI/HI now. Feels her time in [facility] was helpful. Transferred from [facility] Continue SSRI and ativan (4) Ovarian cancer Current Visit: No Status: Acute Comment: Stage IV with peritoneal carcinomatosis Status and Disposition: unsafe for home, needs hospice services. her sister and hospice SW involved in dispo planning.
[2018-02-08] MEDS: Multivitamins/Minerals TAB PO SCH (09:44)
[2018-02-08] MEDS: Lisinopril TAB* 10 MG PO SCH (09:44)
[2018-02-08] MEDS: Docusate CAP* 100 MG PO SCH ×2 (09:44→20:14)
[2018-02-08] MEDS: Senna TAB PO SCH ×2 (09:44→20:14)
[2018-02-08] MEDS: buPROPion SR TAB.SR* 150 MG PO SCH (09:44)
[2018-02-08] MEDS: amLODIPine TAB* 5 MG PO SCH (09:45)
[2018-02-08] MEDS ORDERED: Morphine ORAL.SOLN 10 mg* 2 MG/ML UDC 5 ml PO SCH (12:00)
[2018-02-08] MEDS: Morphine ORAL CONCENTRATE* 5 MG/0.25 ML ORAL.SYRIN PO SCH ×2 (16:00→20:14)
[2018-02-08] MEDS: Mirtazapine TAB* 15 MG PO SCH (21:49)
[2018-02-09] MEDS: Morphine ORAL CONCENTRATE* 5 MG/0.25 ML ORAL.SYRIN PO SCH ×7 (00:01→23:58)
[2018-02-09] MEDS: Levothyroxine TAB* 75 MCG TAB PO SCH (06:24)
[2018-02-09] MEDS: Docusate CAP* 100 MG PO SCH ×2 (09:07→20:10)
[2018-02-09] MEDS: Senna TAB PO SCH ×2 (09:07→20:10)
[2018-02-09] MEDS: Lisinopril TAB* 10 MG PO SCH (09:07)
[2018-02-09] MEDS: buPROPion SR TAB.SR* 150 MG PO SCH (09:08)
[2018-02-09] MEDS: Multivitamins/Minerals TAB PO SCH (09:08)
[2018-02-09] MEDS: amLODIPine TAB* 5 MG PO SCH (09:08)
--- NOTE | 2018-02-09 13:59 | PN ---
Subjective Date of Service: 02/09/18 Interval History: pt feels well. Feels that the pain may be better controlled, but refuses increasing her morphine "just yet". Family History: Unchanged from Admission Social History: Unchanged from Admission Past Medical History: Unchanged from Admission Objective Active Medications: Amlodipine Besylate (Norvasc Tab*) 10 mg PO DAILY [facility] Last Admin: 02/09/18 09:08 Dose: 10 mg Bupropion HCl (Wellbutrin Sr Tab*) 150 mg PO DAILY [facility] Last Admin: 02/09/18 09:08 Dose: 150 mg Device (Nicotine Mouth Piece*) 1 each INH .USE WITH NICOTROL PRN PRN Reason: CRAVING Diphenhydramine HCl (Benadryl Po*) 25 mg PO BEDTIME PRN PRN Reason: INSOMNIA Docusate Sodium (Colace Cap*) 100 mg PO BID [facility] Last Admin: 02/09/18 09:07 Dose: 100 mg Ibuprofen (Motrin Tab*) 400 mg PO Q6H PRN PRN Reason: PAIN Levothyroxine Sodium (Synthroid Tab*) 75 mcg PO DAILY@0600 [facility] Last Admin: 02/09/18 06:24 Dose: 75 mcg Lisinopril (Prinivil Tab*) 10 mg PO DAILY [facility] Last Admin: 02/09/18 09:07 Dose: 10 mg Lorazepam (Ativan Tab(*)) 1 mg PO Q6H PRN PRN Reason: Anxiety/insomnia Mirtazapine (Remeron Tab*) 15 mg PO BEDTIME [facility] Last Admin: 02/08/18 21:49 Dose: 15 mg Morphine Sulfate (Morphine Oral.Soln 10 Mg*) 5 mg PO Q2H PRN PRN Reason: PAIN Last Admin: 02/07/18 15:42 Dose: 5 mg Morphine Sulfate (Morphine Oral.Soln 10 Mg*) 10 mg PO Q2H PRN PRN Reason: PAIN Last Admin: 02/07/18 20:04 Dose: 10 mg Morphine Sulfate (Morphine Oral Concentrate*) 5 mg PO 0000,0600,0800,1200 [facility] Last Admin: 02/09/18 12:28 Dose: 5 mg Morphine Sulfate (Morphine Oral Concentrate*) 5 mg PO 1600,2000 [facility] Multivitamins/Minerals (Theragran/Minerals Tab*) 1 tab PO DAILY [facility] Last Admin: 02/09/18 09:08 Dose: 1 tab Nicotine (Nicotine Inhaler*) 10 mg INH Q2H PRN PRN Reason: CRAVING Senna (Senokot Tab*) 2 tab PO BID [facility] Last Admin: 02/09/18 09:07 Dose: 2 tab Vital Signs - 8 hr 02/09/18 02/09/18 02/09/18 06:24 07:19 08:00 Temperature 97.8 F Pulse Rate 74 Respiratory 18 16 16 Rate Blood Pressure 121/64 (mmHg) O2 Sat by Pulse 97 Oximetry 02/09/18 02/09/18 02/09/18 09:05 12:28 12:41 Temperature Pulse Rate Respiratory 16 16 16 Rate Blood Pressure (mmHg) O2 Sat by Pulse Oximetry Oxygen Devices in Use Now: None Appearance: 67 yo F in nAD, aAox3 Eyes: No Scleral Icterus, PERRLA Ears/Nose/Mouth/Throat: NL Teeth, Lips, Gums, Mucous Membranes Moist Neck: NL Appearance and Movements; NL JVP, Trachea Midline Respiratory: Symmetrical Chest Expansion and Respiratory Effort Cardiovascular: NL Sounds; No Murmurs; No JVD, RRR Abdominal: - - soft, minimal tenderness in b/l lower quadrants Lymphatic: No Cervical Adenopathy Extremities: No Edema, No Clubbing, Cyanosis, - - laceration at 1 cm in occipital scalp healed, 4 tara removed today Skin: No Rash or Ulcers, No Nodules or Sclerosis Neurological: Alert and Oriented x 3, NL Muscle Strength and Tone Assess/Plan/Problems-Billing Assessment: 67 yo female with stage IV ovarian cancer who had been receiving hospice services as an outpatient was admitted to [facility] for a suicide attempt, now transferred to medicine for hospice. - Patient Problems (1) End of life care Comment: she is receiving morphine prn and pain is well controlled requiring no iv medications, however it would be unsafe for her to go home with morphine given her recent suicide attempt Will need SNF with hospice services (2) Bone metastases Comment: pain controlled (3) Hypertension Comment: - Continue amlodipine and lisinopril, BP stable (4) Major depressive disorder, single episode, unspecified Comment: With suicide attempt with ativan at admission. Denies SI/HI now. Feels her time in [facility] was [facility]. Transferred from [facility] Continue SSRI and ativan (5) Ovarian cancer Comment: Stage IV with peritoneal carcinomatosis (6) DVT prophylaxis Comment: none, due to comfort care Status and Disposition: unsafe for home, needs hospice services. On inpatient hospice currently
[2018-02-09] MEDS: Morphine ORAL.SOLN 10 mg* 2 MG/ML UDC 5 ml PO PRN (14:05)
[2018-02-09] MEDS: Mirtazapine TAB* 15 MG PO SCH (21:41)
[2018-02-10] MEDS: Morphine ORAL CONCENTRATE* 5 MG/0.25 ML ORAL.SYRIN PO SCH ×3 (05:53→12:02)
[2018-02-10] MEDS: Levothyroxine TAB* 75 MCG TAB PO SCH (05:53)
--- NOTE | 2018-02-10 10:46 | PN ---
Subjective Date of Service: 02/10/18 Interval History: Pain is well controlled, slept better last night Family History: Unchanged from Admission Social History: Unchanged from Admission Past Medical History: Unchanged from Admission Objective Active Medications: Amlodipine Besylate (Norvasc Tab*) 10 mg PO DAILY [facility] Last Admin: 02/09/18 09:08 Dose: 10 mg Bupropion HCl (Wellbutrin Sr Tab*) 150 mg PO DAILY [facility] Last Admin: 02/09/18 09:08 Dose: 150 mg Device (Nicotine Mouth Piece*) 1 each INH .USE WITH NICOTROL PRN PRN Reason: CRAVING Diphenhydramine HCl (Benadryl Po*) 25 mg PO BEDTIME PRN PRN Reason: INSOMNIA Docusate Sodium (Colace Cap*) 100 mg PO BID [facility] Last Admin: 02/09/18 20:10 Dose: 100 mg Ibuprofen (Motrin Tab*) 400 mg PO Q6H PRN PRN Reason: PAIN Levothyroxine Sodium (Synthroid Tab*) 75 mcg PO DAILY@0600 [facility] Last Admin: 02/10/18 05:53 Dose: 75 mcg Lisinopril (Prinivil Tab*) 10 mg PO DAILY [facility] Last Admin: 02/09/18 09:07 Dose: 10 mg Lorazepam (Ativan Tab(*)) 1 mg PO Q6H PRN PRN Reason: Anxiety/insomnia Mirtazapine (Remeron Tab*) 15 mg PO BEDTIME [facility] Last Admin: 02/09/18 21:41 Dose: 15 mg Morphine Sulfate (Morphine Oral.Soln 10 Mg*) 5 mg PO Q2H PRN PRN Reason: PAIN Last Admin: 02/07/18 15:42 Dose: 5 mg Morphine Sulfate (Morphine Oral.Soln 10 Mg*) 10 mg PO Q2H PRN PRN Reason: PAIN Last Admin: 02/09/18 14:05 Dose: 10 mg Morphine Sulfate (Morphine Oral Concentrate*) 5 mg PO 0000,0600,0800,1200 [facility] Last Admin: 02/10/18 08:04 Dose: 5 mg Morphine Sulfate (Morphine Oral Concentrate*) 5 mg PO 1600,2000 [facility] Last Admin: 02/09/18 20:10 Dose: 5 mg Multivitamins/Minerals (Theragran/Minerals Tab*) 1 tab PO DAILY [facility] Last Admin: 04/02/18 09:08 Dose: 1 tab Nicotine (Nicotine Inhaler*) 10 mg INH Q2H PRN PRN Reason: CRAVING Senna (Senokot Tab*) 2 tab PO BID [facility] Last Admin: 02/09/18 20:10 Dose: 2 tab Vital Signs - 8 hr 02/10/18 02/10/18 02/10/18 03:15 05:53 07:06 Temperature 98.3 F Pulse Rate 72 Respiratory 16 15 16 Rate Blood Pressure 110/67 (mmHg) O2 Sat by Pulse 100 Oximetry 02/10/18 02/10/18 08:00 08:04 Temperature Pulse Rate Respiratory 18 18 Rate Blood Pressure (mmHg) O2 Sat by Pulse Oximetry Oxygen Devices in Use Now: None Appearance: 67 yo f in nAD, AAOx3 Eyes: No Scleral Icterus, PERRLA Ears/Nose/Mouth/Throat: NL Teeth, Lips, Gums, Mucous Membranes Moist Neck: NL Appearance and Movements; NL JVP, Trachea Midline Respiratory: Symmetrical Chest Expansion and Respiratory Effort, Clear to Auscultation Cardiovascular: NL Sounds; No Murmurs; No JVD, RRR Abdominal: NL Sounds; No Tenderness; No Distention Extremities: No Edema Skin: No Rash or Ulcers Neurological: Alert and Oriented x 3, NL Muscle Strength and Tone Assess/Plan/Problems-Billing Assessment: 67 yo female with stage IV ovarian cancer who had been receiving hospice services as an outpatient was admitted to psych for a suicide attempt, now transferred to medicine for hospice. - Patient Problems (1) End of life care Comment: she is receiving morphine prn and pain is well controlled requiring no iv medications, however it would be unsafe for her to go home with morphine given her recent suicide attempt Will need SNF with hospice services (2) Bone metastases Comment: pain controlled (3) Hypertension Comment: - Continue amlodipine and lisinopril, BP stable (4) Major depressive disorder, single episode, unspecified Comment: With suicide attempt with ativan at admission. Denies SI/HI now. Feels her time in [facility] was helpful. [facility]red from [facility] Continue SSRI and ativan (5) Ovarian cancer Comment: Stage IV with peritoneal carcinomatosis (6) DVT prophylaxis Comment: none, due to comfort care Status and Disposition: unsafe for home. On inpatient hospice currently. Awaiting placement
[2018-02-10] MEDS: amLODIPine TAB* 5 MG PO SCH (12:02)
[2018-02-10] MEDS: Lisinopril TAB* 10 MG PO SCH (12:02)
[2018-02-10] MEDS: Docusate CAP* 100 MG PO SCH ×2 (12:03→20:16)
[2018-02-10] MEDS: buPROPion SR TAB.SR* 150 MG PO SCH (12:03)
[2018-02-10] MEDS: Multivitamins/Minerals TAB PO SCH (12:03)
[2018-02-10] MEDS: Senna TAB PO SCH ×2 (12:03→20:16)
--- NOTE | 2018-02-10 12:38 | PN ---
Progress Note - Progress Note Date of Service: 02/10/18 Note: Met today with patient, who is doing very well and looking forward to transfer out of [facility] for hospice services near her sister and [id number]. She is still having quite a bit of pain in her ribs and back, particularly when she is not supine, and sometimes her morphine doses are delayed, which creates more pain to "rizwana." She is interested in long-acting morphine. She is currently taking 5 mg MSO4 6 times dauily scheduled, which is 30 mg. I suggest 15 mg MSContin BID and continuing 5 mg doses for breakthrough on a prn basis.
[2018-02-10] MEDS ORDERED: Morphine ORAL CONCENTRATE* 5 MG/0.25 ML ORAL.SYRIN PO PRN ×3 (14:23→20:00)
[2018-02-10] MEDS: Morphine TAB Extended Release (*) 15 MG TAB.ER PO SCH (20:15)
[2018-02-10] MEDS: Mirtazapine TAB* 15 MG PO SCH (22:30)
[2018-02-11] MEDS: Levothyroxine TAB* 75 MCG TAB PO SCH (06:40)
[2018-02-11 08:04] VITALS: BP 112/61
[2018-02-11] MEDS: amLODIPine TAB* 5 MG PO SCH (08:09)
[2018-02-11] MEDS: Docusate CAP* 100 MG PO SCH (08:09)
[2018-02-11] MEDS: Multivitamins/Minerals TAB PO SCH (08:09)
[2018-02-11] MEDS: Lisinopril TAB* 10 MG PO SCH (08:09)
[2018-02-11] MEDS: Morphine TAB Extended Release (*) 15 MG TAB.ER PO SCH (08:10)
[2018-02-11] MEDS: buPROPion SR TAB.SR* 150 MG PO SCH (08:10)
[2018-02-11] MEDS: Senna TAB PO SCH (08:10)
--- NOTE | 2018-02-11 12:26 | DS ---
CC: Dr. Gill; Dr. Sargent; Dr. Carol Bruno; [facility] * DISCHARGE SUMMARY: DATE OF ADMISSION: 02/05/18 DATE OF DISCHARGE AND TRANSFER TO [facility] FACILITY: 02/11/18 PRIMARY CARE PROVIDER: Fanta Gill MD DISCHARGE DIAGNOSES: 1. Depression. 2. Ovarian cancer with metastasis. 3. End of life care. The patient is currently on hospice. 4. Hypertension. 5. Hypothyroidism. MEDICATIONS AT DISCHARGE: Include; 1. Acetaminophen on a p.r.n. basis. 2. Maalox on a p.r.n. basis. 3. Norvasc 10 mg daily. 4. Wellbutrin SR 150 mg daily. 5. Benadryl 25 mg at bedtime p.r.n. 6. Colace 100 mg b.i.d. 7. Ibuprofen 400 mg every 6 hours p.r.n. 8. Synthroid 75 mcg daily. 9. Lisinopril 10 mg daily. 10. Lorazepam 1 mg every 6 hours p.r.n. 11. Remeron 15 mg at bedtime. 12. Morphine oral concentrate 5 mg every 4 hours p.r.n. 13. Morphine extended release 15 mg every 12 hours. 14. Multivitamin one tablet daily. 15. Nicotine inhaler 10 mg every 2 hours p.r.n. 16. Senna two tablets b.i.d. LABORATORY DATA: Obtained during her hospital stay, none. Please note that the patient was inpatient hospice. HOSPITALIZATION COURSE: Mrs. Brar is a very nice 67-year-old female with history of metastatic ovarian cancer for which she was on outpatient hospice. She signed out on outpatient hospice in November,. She was alone and feeling isolated and fearful about pain, but that may be associated with her aloneness. Due to that she attempted to take her life on 01/26/18 with Ativan overdose. Her sister called to check on her and when she did not answer the phone, she sent the police; however, was found unresponsive on the floor. The patient apparently euthanized her cat before she attempted to commit suicide. She was admitted to our mental health unit on 01/27/[address] Sargent with good results. The patient became quite social and she did not have any suicidal ideations by the time of admission to the medical floor for hospice and inpatient on 02/05/18. She continued to be very well controlled with her depression as well as with pain control throughout her hospital stay. Dr. Carol Bruno was actively following the patient from hospice standpoint. It became apparent that due to the patient requiring significant amount of morphine and that this patient just recently tried to commit suicide as well as how alone she was at home, she will not be a good candidate to go back to home on independent living. At that point, she was offered [facility] facility bed in [place], [place] which is closer to where her sister lives. The patient is very happy about that placement and she is going to be discharge on . It is advised for the patient to be placed on comfort care and hospice as she was during her hospital stay. PHYSICAL EXAM AT THE TIME OF DISCHARGE: Vitals Signs: Blood pressure 102/61, heart rate of 79 and regular, respiratory rate 17, oxygen saturation 95% on room air, temperature 97.5. General: Very pleasant 67-year-old female who is in no acute distress. Alert, awake, and oriented x3. HEENT: Head is atraumatic, normocephalic. Eyes: Pupils are equal and reactive to light and accommodation. Oropharynx clear. Mucosa moist. Neck: Supple. No JVD. No bruits bilaterally. Cardiovascular: Regular rate and rhythm. No murmurs. Respiratory: Clear to auscultation bilaterally. Abdomen: Soft. Minimally tender in bilateral lower quadrants. There is no rebound. No guarding. Bowel sounds are present in all 4 quadrants. Extremities: There is no no edema. Pulses +2 bilaterally. No clubbing or cyanosis. Psychiatric Evaluation: The patient is a very pleasant, cooperative, well oriented x3 with no evidence of anxiety or depression. Please note that this is a short summary of the patient's hospitalization. Please refer to further medical records for details. [id number]/[facility] #: [id number] [facility]
== END 2018-02-11 09:15 | DRG 862 ==
LOC: UNDOADMIN 18:32 → MED 18:32
PROVIDERS: ADMIT Psychiatry & Neurology Psychiatry; ATTEND Internal Medicine
DX: Z51.5 Encounter for palliative care (principal); C79.51 Secondary malignant neoplasm of bone; C56.9 Malignant neoplasm of unspecified ovary; I10 Essential (primary) hypertension; E03.9 Hypothyroidism, unspecified; F41.9 Anxiety disorder, unspecified; Z66 Do not resuscitate; F32.9 Major depressive disorder, single episode, unspecified; Z79.1 Long term (current) use of non-steroidal anti-inflammatories (NSAID); Z79.891 Long term (current) use of opiate analgesic; Z79.899 Other long term (current) drug therapy; Z88.5 Allergy status to narcotic agent; Z88.8 Allergy status to other drugs, medicaments and biological substances; Z87.891 Personal history of nicotine dependence
CPT/HCPCS: A9270-GY